=== PATIENT | male | born 1960 ===

== ENCOUNTER 2021-05-10 15:45 | Inpatient (IN) | payer MEDICARE ==
[~2021-05-10] VITALS: Ht 182.9 cm; Wt 74.1 kg
[2021-05-10 16:26] LABS: BASOPHILS ABSOLUTE AUTO 0.04 K/mm3 (0.00-0.23); BASOPHILS PERCENT AUTO 0 % (0-2); EOSINOPHILS PERCENT AUTO 0 % (0-6); Hematocrit 47.2 % (37.0-53.0); Hemoglobin 16.3 g/dL (13.5-17.5); IMMATURE GRAN ABSOLUTE AUTO 0.03 K/mm3 (0.00-0.10); IMMATURE GRAN PERCENT AUTO 0 % (0-1); LYMPHOCYTES PERCENT AUTO 9 % (21-46); MONOCYTES PERCENT AUTO 7 % (4-13); Mean Corpuscular HGB 33.7 pg (26.0-34.0); Mean Corpuscular HGB Conc 34.5 g/dL (31.5-36.5); Mean Corpuscular Volume 98 fL (80-100); Mean Platelet Volume 11.4 fL (9.1-12.4); NEUTROPHILS ABSOLUTE AUTO 9.05 K/mm3 (1.96-9.15); NEUTROPHILS PERCENT AUTO 83 % (41-73); Platelet Count 109 K/mm3 (150-400); RDW Coefficient Variation 13.1 % (11.7-14.2); RDW Standard Deviation 47.5 fL (35.1-46.3); Red Blood Cell Count 4.84 M/mm3 (4.30-5.90); White Blood Cell Count 10.92 K/mm3 (4.00-11.30)
[2021-05-10 16:43] LABS: Alanine Aminotransfer (ALT/SGP 77 U/L (12-78); Albumin, Blood 2.9 g/dL (3.4-5.0); Albumin/Globulin Ratio 0.5 (0.8-1.8); Alk Phos 166 U/L (50-136); Anion Gap 13 mmol/L (6-16); Aspartate Aminotrans (AST/SGOT 411 U/L (12-37); Beta HCG, Quantitative, Serum <1 mIU/mL (0-1); Bilirubin, Total 4.2 mg/dL (0.1-1.0); Blood Urea Nitrogen 13 mg/dL (8-24); Bun/Creatinine Ratio 19.4 (12.0-20.0); CO2, Blood 21 mmol/L (21-32); Calcium, Blood 9.2 mg/dL (8.5-10.1); Chloride, Blood 104 mmol/L (98-108); Creatinine, Blood 0.67 mg/dL (0.60-1.20); Ethanol (Alcohol), Blood, Med <3 mg/dL; Globulin, Blood 5.6 g/dL (2.2-4.0); Glomerular Filtration Rate >60 (60-); Glucose, Blood 82 mg/dL (70-99); Potassium, Blood 4.5 mmol/L (3.5-5.5); Sodium, Blood 138 mmol/L (136-145); Total Protein, Blood 8.5 g/dL (6.4-8.2)
[2021-05-10 18:08] LABS: Creatine Kinase MB 74.7 ng/mL (0.0-3.6); Creatine Kinase MB Index 0.8 (0.0-4.0)
[2021-05-10 19:06] LABS: Albumin, Blood 2.9 g/dL (3.4-5.0); Albumin/Globulin Ratio 0.5 (0.8-1.8); Bilirubin, Direct 1.4 mg/dL (0.0-0.3); Bilirubin, Indirect 2.8 mg/dL (0.1-0.7); Bilirubin, Total 4.2 mg/dL (0.1-1.0); Globulin, Blood 5.5 g/dL (2.2-4.0); Total Protein, Blood 8.4 g/dL (6.4-8.2)
[2021-05-10 21:04] LABS: International Normalized Ratio 1.28; Prothrombin Time Results 13.2 Sec (9.7-11.5)
[2021-05-10 21:49] LABS: Source, Urine Clean Catch
[2021-05-10 21:51] LABS: Bilirubin, Urine Neg (Neg); Blood, Urine 5+ (Neg); Glucose Qualitative, Urine Neg (Neg); Ketones, Urine 3+ (Neg); Leukocyte Esterase, Urine 3+ (Neg); Nitrite, Urine Pos (Neg); Protein, Urine 3+ (Neg); Specific Gravity, Urine 1.015 (1.003-1.022); Urobilinogen, Urine 1+ (Normal)
[2021-05-10 21:57] LABS: Appearance, Urine Hazy (Clear); Color, Urine Amber (P-Yellow)
[2021-05-10 21:58] LABS: Red Blood Cells, Urine 0-2 /hpf (0-2); Squamous Epithelial Cells Not Seen /hpf (Few); White Blood Cells, Urine TNTC /hpf (0-5)
[2021-05-10 21:59] LABS: Bacteria Many /hpf
--- NOTE | 2021-05-10 23:34 | NUR ---
ADMISSION NOTE: RECEIVED PT FROM ER VIA STRETCHER LETHARGIC. PT DENIES ANY DISCOMFORT. ORIENTED TO SELF. MILD TREMORS. NO SEIZURE ACTIVITY. BRUISES TO CHEST, RIGHT EYEBROW, AND BILATERAL KNEES. PT WAS MADE COMFORTABLE IN BED. SAFETY MEASURES IMPLEMENTED. BED ALARM EXIT ON. IVF INFUSING. STACH 102 ON TELE. ON CONT PULSE OX SAT @ 96% ON RA. WILL CONTINUE TO MONITOR.
--- NOTE | 2021-05-11 01:15 | NUR ---
PT IS AGITATED, RESLESS, KICKING SIDE RAILS. ATIVAN 2MG GIVEN PRN. B/P 157/84, HR 104, RESP 19, SAT 96% ON RA.
[2021-05-11 05:00] LABS: BASOPHILS ABSOLUTE AUTO 0.02 K/mm3 (0.00-0.23); BASOPHILS PERCENT AUTO 0 % (0-2); EOSINOPHILS PERCENT AUTO 0 % (0-6); Hematocrit 42.4 % (37.0-53.0); Hemoglobin 14.6 g/dL (13.5-17.5); IMMATURE GRAN ABSOLUTE AUTO 0.02 K/mm3 (0.00-0.10); IMMATURE GRAN PERCENT AUTO 0 % (0-1); LYMPHOCYTES ABSOLUTE AUTO 1.58 K/mm3 (0.84-5.20); LYMPHOCYTES PERCENT AUTO 18 % (21-46); MONOCYTES ABSOLUTE AUTO 0.79 K/mm3 (0.16-1.47); MONOCYTES PERCENT AUTO 9 % (4-13); Mean Corpuscular HGB 33.5 pg (26.0-34.0); Mean Corpuscular HGB Conc 34.4 g/dL (31.5-36.5); Mean Corpuscular Volume 97 fL (80-100); Mean Platelet Volume 11.2 fL (9.1-12.4); NEUTROPHILS ABSOLUTE AUTO 6.38 K/mm3 (1.96-9.15); NEUTROPHILS PERCENT AUTO 73 % (41-73); Platelet Count 85 K/mm3 (150-400); RDW Standard Deviation 46.6 fL (35.1-46.3); Red Blood Cell Count 4.36 M/mm3 (4.30-5.90); White Blood Cell Count 8.79 K/mm3 (4.00-11.30)
[2021-05-11 06:11] LABS: Alanine Aminotransfer (ALT/SGP 85 U/L (12-78); Albumin, Blood 2.4 g/dL (3.4-5.0); Albumin/Globulin Ratio 0.5 (0.8-1.8); Alk Phos 126 U/L (50-136); Anion Gap 10 mmol/L (6-16); Aspartate Aminotrans (AST/SGOT 514 U/L (12-37); Blood Urea Nitrogen 13 mg/dL (8-24); Bun/Creatinine Ratio 19.6 (12.0-20.0); CO2, Blood 26 mmol/L (21-32); Calcium, Blood 8.8 mg/dL (8.5-10.1); Chloride, Blood 109 mmol/L (98-108); Creatinine, Blood 0.66 mg/dL (0.60-1.20); Globulin, Blood 4.5 g/dL (2.2-4.0); Glomerular Filtration Rate >60 (60-); Glucose, Blood 117 mg/dL (70-99); Magnesium, Blood 2.3 mg/dL (1.6-2.4); Potassium, Blood 3.7 mmol/L (3.5-5.5); Sodium, Blood 145 mmol/L (136-145); Total Protein, Blood 6.9 g/dL (6.4-8.2)
[2021-05-11 06:22] LABS: CPK Creatine Kinase 11070 U/L (39-308)
--- NOTE | 2021-05-11 06:23 | NUR ---
PT HAS BEEN IN BED RESTLESS AT TIMES. CIWA SCORE 1-5. NO SEIZURE ACTIVITY. PT REMAINS CONFUSED AND DISORGANIZED. MEDICATED X 1 WITH ATIVAN PRN FOR AGITATION. ENEMA GIVEN. LARGE BM X1. IVF PATENTLY INFUSING. MEPILEX APPLIED TO CHEST AND VERO KNEES. SINUS TACH ON MONITOR; HR 107. SAT 96% ON RA. VSS.
[2021-05-11 14:05] LABS: Stool Occult Blood Guaiac 1 Pos (Neg)
[2021-05-11 15:23] LABS: U Amphetamine Screen Not Detected; U Barbituate Screen Not Detected; U Benzodiazapine Screen DETECTED; U Buprenorphine Screen Not Detected; U Cannabinoids Screen DETECTED; U Cocaine Screen Not Detected; U Methadone Screen Not Detected; U Methamphetamine Screen Not Detected; U Opiates Screen Not Detected; U Oxycodone Screen Not Detected; U Phencyclidine Screen Not Detected; U Propoxyphene Screen Not Detected
--- NOTE | 2021-05-11 17:22 | NUR ---
PT ALERT AND ORIENTED TO SLEF,PT IS HALLUCINATING AT TIMES,PT ON SEIZURES PRECAUTIONS ETOH,PT HAVE BAD TREMORS,PT HAVE MCCONNELL,DISCOLORATIONS WITH SCABS ON UPPER CHEST AREA AND BILATERAL KNEES,PT RIGHT EYE IS SWOLLEN WITH BRUISES AROUND THE FACE ARE,PT GLANS IS ALSO SWOLLEN WITH DISCOLORATIONS AROUND THE GROIN AREA,PT ON TELE RUNNING SINUS TACHY AT RATE 112,PT IN BED,BED IN LOW POSTION,CALL LIGHT IN REACH WILL CONTINUE TO MONITOR.
--- NOTE | 2021-05-12 01:25 | NUR ---
PT HAS BEEN AGITATED WITH CIWA SCORE OVER 15. ATIVAN PRN GIVEN PER CIWA. VS MONITORED. NO SEIZURE ACTIVITY. STACH ON TELE 113. SAT 94 ON RA. PT REMAINS CONFUSED WITH VISUAL HALLUCINATIONS. IVF INFUSING. ADLS GIVEN. TURNED AND REPOSITIONED FOR COMFORT. SAFETY PRECAUTIONS MAINTAINED. WILL CONTINUE WITH PLAN OF CARE.
[2021-05-12 05:25] LABS: BASOPHILS ABSOLUTE AUTO 0.02 K/mm3 (0.00-0.23); BASOPHILS PERCENT AUTO 0 % (0-2); EOSINOPHILS ABSOLUTE AUTO 0.17 K/mm3 (0.00-0.68); EOSINOPHILS PERCENT AUTO 2 % (0-6); Hematocrit 43.1 % (37.0-53.0); Hemoglobin 14.6 g/dL (13.5-17.5); IMMATURE GRAN ABSOLUTE AUTO 0.07 K/mm3 (0.00-0.10); IMMATURE GRAN PERCENT AUTO 1 % (0-1); LYMPHOCYTES ABSOLUTE AUTO 1.73 K/mm3 (0.84-5.20); LYMPHOCYTES PERCENT AUTO 25 % (21-46); MONOCYTES ABSOLUTE AUTO 0.63 K/mm3 (0.16-1.47); MONOCYTES PERCENT AUTO 9 % (4-13); Mean Corpuscular HGB 33.5 pg (26.0-34.0); Mean Corpuscular HGB Conc 33.9 g/dL (31.5-36.5); Mean Corpuscular Volume 99 fL (80-100); Mean Platelet Volume 11.2 fL (9.1-12.4); NEUTROPHILS ABSOLUTE AUTO 4.39 K/mm3 (1.96-9.15); NEUTROPHILS PERCENT AUTO 63 % (41-73); Platelet Count 72 K/mm3 (150-400); RDW Coefficient Variation 13.1 % (11.7-14.2); RDW Standard Deviation 47.8 fL (35.1-46.3); Red Blood Cell Count 4.36 M/mm3 (4.30-5.90); White Blood Cell Count 7.01 K/mm3 (4.00-11.30)
--- NOTE | 2021-05-12 05:59 | NUR ---
PT REMAINS CONFUSED. HAS BEEN AGITATED THROUGHOUT THE NIGHT. ATIVAN GIVEN PER CIWA PROTOCOL. RESTING IN BED WITHOUT DISTRESS. LAST CIWA SCORE 7. IVF INFUSING. ABX GIVEN. NO SEIZURE ACTIVITY. TURNED AND REPOSITIONED FOR COMFORT. ADLS GIVEN.
[2021-05-12 06:02] LABS: Alanine Aminotransfer (ALT/SGP 111 U/L (12-78); Albumin, Blood 2.4 g/dL (3.4-5.0); Albumin/Globulin Ratio 0.5 (0.8-1.8); Alk Phos 124 U/L (50-136); Anion Gap 7 mmol/L (6-16); Aspartate Aminotrans (AST/SGOT 688 U/L (12-37); Blood Urea Nitrogen 10 mg/dL (8-24); Bun/Creatinine Ratio 16.8 (12.0-20.0); CO2, Blood 29 mmol/L (21-32); Calcium, Blood 8.7 mg/dL (8.5-10.1); Chloride, Blood 108 mmol/L (98-108); Globulin, Blood 4.8 g/dL (2.2-4.0); Glomerular Filtration Rate >60 (60-); Glucose, Blood 110 mg/dL (70-99); Potassium, Blood 2.8 mmol/L (3.5-5.5); Sodium, Blood 144 mmol/L (136-145); Total Protein, Blood 7.2 g/dL (6.4-8.2)
[2021-05-12 11:05] LABS: PCO2 Arterial 38.9 mmHg (35-45); PO2 Arterial 70.7 mmHg (80-100); pH Blood Arterial 7.51 (7.35-7.45)
--- NOTE | 2021-05-12 19:15 | NUR ---
SHIFT SUMMARY PATIENT IS ALERT TO SELF AND PLACE OCCASIONALLY. PATIENT RECENTLY HAD A CIWA SCORE OF 7. PATIENT'S ATIVAN WAS REDUCED AND ABLE TO HOLD A CONVERSATION. PATIENT IS ON 2.5 LITERS O2 VIA NASAL CANNULA. INCONTINENT, ON A FULL LIQUID DIET. PATIENT WILL NOT CALL.
[2021-05-13 06:01] LABS: BASOPHILS ABSOLUTE AUTO 0.02 K/mm3 (0.00-0.23); BASOPHILS PERCENT AUTO 0 % (0-2); EOSINOPHILS ABSOLUTE AUTO 0.01 K/mm3 (0.00-0.68); EOSINOPHILS PERCENT AUTO 0 % (0-6); Hematocrit 44.2 % (37.0-53.0); Hemoglobin 14.6 g/dL (13.5-17.5); IMMATURE GRAN ABSOLUTE AUTO 0.02 K/mm3 (0.00-0.10); IMMATURE GRAN PERCENT AUTO 0 % (0-1); LYMPHOCYTES ABSOLUTE AUTO 1.65 K/mm3 (0.84-5.20); LYMPHOCYTES PERCENT AUTO 22 % (21-46); MONOCYTES ABSOLUTE AUTO 0.91 K/mm3 (0.16-1.47); MONOCYTES PERCENT AUTO 12 % (4-13); Mean Corpuscular HGB 33.3 pg (26.0-34.0); Mean Corpuscular Volume 101 fL (80-100); Mean Platelet Volume 11.2 fL (9.1-12.4); NEUTROPHILS ABSOLUTE AUTO 4.82 K/mm3 (1.96-9.15); NEUTROPHILS PERCENT AUTO 65 % (41-73); Platelet Count 69 K/mm3 (150-400); RDW Coefficient Variation 12.7 % (11.7-14.2); RDW Standard Deviation 47.7 fL (35.1-46.3); Red Blood Cell Count 4.39 M/mm3 (4.30-5.90); White Blood Cell Count 7.43 K/mm3 (4.00-11.30)
--- NOTE | 2021-05-13 06:34 | NUR ---
SHIFT SUMMARY PATIENT ALERT AND ORIENTED TO SELF. HAD NO COMPLAINTS OF PAIN OR SHORTNESS OF BREATH. BED IN LOWEST POSITION WITH WHEELS LOCKED AND ALARM ON. CALL LIGHT WITHIN REACH. REPORT GIVEN TO ONCOMING RN.
[2021-05-13 06:36] LABS: Alanine Aminotransfer (ALT/SGP 114 U/L (12-78); Albumin, Blood 2.3 g/dL (3.4-5.0); Albumin/Globulin Ratio 0.5 (0.8-1.8); Alk Phos 142 U/L (50-136); Anion Gap 7 mmol/L (6-16); Aspartate Aminotrans (AST/SGOT 622 U/L (12-37); Bilirubin, Total 3.6 mg/dL (0.1-1.0); Blood Urea Nitrogen 8 mg/dL (8-24); Bun/Creatinine Ratio 14.8 (12.0-20.0); CO2, Blood 28 mmol/L (21-32); Calcium, Blood 8.6 mg/dL (8.5-10.1); Chloride, Blood 109 mmol/L (98-108); Creatinine, Blood 0.54 mg/dL (0.60-1.20); Glomerular Filtration Rate >60 (60-); Glucose, Blood 94 mg/dL (70-99); Potassium, Blood 3.7 mmol/L (3.5-5.5); Sodium, Blood 144 mmol/L (136-145); Total Protein, Blood 7.3 g/dL (6.4-8.2)
[2021-05-13 06:57] LABS: CPK Creatine Kinase 6538 U/L (39-308)
--- NOTE | 2021-05-13 17:02 | NUR ---
SHIFT SUMMARY PATIENT IS ALERT AND ORIENTED TO SELF, AND FAMILY. PATIENT'S RECENT CIWA SCORE WAS A 4. PATIENT DENIES ANY PAIN OR DISCOMFORT AT THIS TIME. PATIENT HAS BEEN ABLE TO EAT SOME OF THEIR MEALS TODAY. PATIENT HAS BEEN COOPERATIVE FOR THE MOST PART, AND LESS RESTRICTIVE WITH BEDSIDE CARE. WILL CONTINUE TO MONITOR THE PATIENT UNTIL REPORT IT GIVEN TO ONCOMING NURSE.
--- NOTE | 2021-05-14 04:33 | NUR ---
SHIFT SUMMARY PT CONFUSED. YELLS OUT AT TIMES. SPEECH IS GARBLED AND DIFFICULT TO UNDERSTAND. PT IS RESISTANT TO CARE, PLEASANT OTHERWISE BUT DOES NOT LIKE TO BE TURNED OR HAVE ATTENDS CHANGED. PUSHES BACK WITH CHANGES. WHEN LEFT TO REST PT DOES NOT APPEAR TO BE OVERLY ANXIOUS. CIWA SCORES 6-7. NO PRN MEDICATION GIVEN THIS EVENING. PT HAS LARGE SCABS ON FACE AND CHEST AND KNEES. MEPILEX TO SORES ON CHEST/ABD. PT DRANK PO LACTULOSE IN APPLE JUICE. ONE BM THIS EVENING. HEAVILY INCONTINENT OF URINE. URINE DARK AND ORANGE IN COLOR. TELEMETRY READING SINUS TACH AT 105. VITAL SIGNS STABLE. NO ACUTE CHANGES THIS EVENING.
[2021-05-14 06:41] LABS: Alanine Aminotransfer (ALT/SGP 107 U/L (12-78); Albumin, Blood 2.2 g/dL (3.4-5.0); Albumin/Globulin Ratio 0.5 (0.8-1.8); Alk Phos 155 U/L (50-136); Anion Gap 4 mmol/L (6-16); Aspartate Aminotrans (AST/SGOT 438 U/L (12-37); Bilirubin, Total 3.1 mg/dL (0.1-1.0); Blood Urea Nitrogen 6 mg/dL (8-24); Bun/Creatinine Ratio 12.2 (12.0-20.0); CO2, Blood 31 mmol/L (21-32); Calcium, Blood 8.7 mg/dL (8.5-10.1); Chloride, Blood 110 mmol/L (98-108); Creatinine, Blood 0.49 mg/dL (0.60-1.20); Ferritin, Serum 484 ng/mL (26-388); Globulin, Blood 4.8 g/dL (2.2-4.0); Glomerular Filtration Rate >60 (60-); Glucose, Blood 101 mg/dL (70-99); Iron Serum 63 ug/dL (65-175); Percent Saturation 36.6 % (20.0-50.0); Potassium, Blood 2.9 mmol/L (3.5-5.5); Sodium, Blood 145 mmol/L (136-145); Total Iron Binding Capacity 172 ug/dL (250-450)
--- NOTE | 2021-05-14 16:29 | NUR ---
SHIFT SUMMARY PATIENT DENIES PAIN, NAUSEA, AND SHORTNESS OF BREATH. PATIENT WAS AGITATED THIS MORNING, TRYING TO CRAWL PUT OF BED. MEDICATED PER EMAR. PATIENT RELAXED AFTER. NEW ORDERS FOR A NICOTINE PATCH. 1700 LACTULOSE HELD DUE TO PATIENT HAVING 5+ LOOSE STOOLS THIS SHIFT. PATIENT IS A 2 PERSON ROLL IN BED. PATIENT IS MOSTLY INCONTINENT. DRESSING CHANGED. PATIENT IS DRINKING WELL. PATIENT HAS POOR PO INTAKE FOR EATING. CIWA UNDER 8 FOR ENTIRE SHIFT. PATIENT FREQUENTLY YELLED OUT THIS SHIFT.
[2021-05-15 05:43] LABS: Magnesium, Blood 1.7 mg/dL (1.6-2.4)
[2021-05-15 05:48] LABS: Anion Gap 6 mmol/L (6-16); Blood Urea Nitrogen 5 mg/dL (8-24); Bun/Creatinine Ratio 10.8 (12.0-20.0); CO2, Blood 29 mmol/L (21-32); Calcium, Blood 8.2 mg/dL (8.5-10.1); Chloride, Blood 100 mmol/L (98-108); Creatinine, Blood 0.47 mg/dL (0.60-1.20); Glomerular Filtration Rate >60 (60-); Glucose, Blood 95 mg/dL (70-99); Phosphorus, Blood 2.8 mg/dL (2.5-4.9); Potassium, Blood 3.4 mmol/L (3.5-5.5)
[2021-05-15 05:50] LABS: Sodium, Blood 135 mmol/L (136-145)
--- NOTE | 2021-05-15 07:44 | NUR ---
SHIFT SUMMARY PT IS A 61 Y/O MALE, ADMITTED FOR ETOH WITHDRAWAL. HE IS A&0 X SELF, YELLS OUT FREQUENTLY WHEN HE NEEDS HELP. INCONTINENT. NO C/O ACUTE PAIN, NAUSEA OR SOB. VITAL SIGNS STABLE. PT SLID FROM THE BED TO THE FLOOR THIS AM @ APPROXIMATELY 0645. NO NEW WOUNDS NOTED, THOUGH WOUND ON PT'S R KNEE BLED SLIGHTLY. PT ALSO REPORTED HE BUMPED HIS HEAD ON THE BEDSIDE TABLE WHEN ALREADY ON THE FLOOR. VITAL SIGNS STABLE POST FALL. NO CHANGES NOTED POST-FALL. REPORT GIVEN TO ONCOMING RN.
--- NOTE | 2021-05-15 17:06 | NUR ---
SHIFT SUMMARY PATIENT IS ALERT AND ORIENTED TO SELF. PATIENT CONTINUES TO BELIEVE THEY ARE IN [place] AT THIS TIME. PATIENT HAS BEEN TRYING TO GET OUT OF BED MULTIPLE TIMES THIS SHIFT. A NON-VIOLENT RESTRAINT WAS ORDERED THIS SHIFT. THE PATIENT HAS SINCE STAYED IN BED. NO ACUTE CHANGES, STILL MEDICATING WITH ATIVAN PER THE EMAR.
--- NOTE | 2021-05-15 22:16 | NUR ---
PT CONTINUES ON WITHDRAWL CHECKS FOR ETOH. SCORE OF LAST CHECK: 10. CLIMBING OVER RAILS, HIGH FALL RISK, AGITATED. ATIVAN 1 MG PO ADMINISTERED, JORDAN BRITO APPLIED PER MD ORDERS FOR PT SAFETY. CALL LIGHT IN REACH.
[2021-05-16 04:58] LABS: Alanine Aminotransfer (ALT/SGP 115 U/L (12-78); Albumin, Blood 2.1 g/dL (3.4-5.0); Albumin/Globulin Ratio 0.4 (0.8-1.8); Alk Phos 163 U/L (50-136); Anion Gap 5 mmol/L (6-16); Aspartate Aminotrans (AST/SGOT 307 U/L (12-37); Bilirubin, Total 4.3 mg/dL (0.1-1.0); Blood Urea Nitrogen 6 mg/dL (8-24); Bun/Creatinine Ratio 11.5 (12.0-20.0); CO2, Blood 30 mmol/L (21-32); Calcium, Blood 8.4 mg/dL (8.5-10.1); Chloride, Blood 101 mmol/L (98-108); Creatinine, Blood 0.52 mg/dL (0.60-1.20); Globulin, Blood 4.7 g/dL (2.2-4.0); Glomerular Filtration Rate >60 (60-); Glucose, Blood 74 mg/dL (70-99); Potassium, Blood 3.7 mmol/L (3.5-5.5); Sodium, Blood 136 mmol/L (136-145); Total Protein, Blood 6.8 g/dL (6.4-8.2)
--- NOTE | 2021-05-16 05:31 | NUR ---
CURATOR OF PHOTOGRAPHY AND PRINTS SUMMARY PT CONTINUES TO SHOW ANXIETY AND AGITATION AND MADE MULTIPLE ATTEMPTS TO GET OUT OF BED. VERY UNSTEADY AND NOT REDIRECTABLE. PLACED IN JORDAN VEST FOR SAFETY PER MD ORDERS. INCONT OF URINE SEVERAL TIMES. CALL LIGHT IN REACH. RECEIVED ATIVAN PO X 1 THIS SHIFT. WILL CONTINUE TO ENCOURAGE SAFE BEHAVIOR.
--- NOTE | 2021-05-16 15:56 | NUR ---
TRANSFER PATIENT TRANSFERRED TO ROOM 351. BELONGINGS SENT WITH PATIENT. REPORT GIVEN TO COURTNEY UNDERWOOD.
--- NOTE | 2021-05-16 18:03 | NUR ---
PATIENT IS ALERT AND DISORIENTED. HE IS INCONTINENT OF URINE, ATTENDS IN PLACE. ON RA. PATIENT IS SITTING UP IN BED EATING DINNER WITH ASSISTANCE AT THIS TIME. PATIENT BECOMES AGITATED WITH CARE AT TIMES. JORDAN VEST RESTRAINT IS IN PLACE. NO C/O PAIN. WILL CONTINUE TO MONITOR
[2021-05-17 05:27] LABS: BASOPHILS ABSOLUTE AUTO 0.07 K/mm3 (0.00-0.23); BASOPHILS PERCENT AUTO 1 % (0-2); EOSINOPHILS PERCENT AUTO 1 % (0-6); Hematocrit 39.9 % (37.0-53.0); Hemoglobin 13.4 g/dL (13.5-17.5); IMMATURE GRAN ABSOLUTE AUTO 0.04 K/mm3 (0.00-0.10); IMMATURE GRAN PERCENT AUTO 1 % (0-1); LYMPHOCYTES ABSOLUTE AUTO 1.99 K/mm3 (0.84-5.20); LYMPHOCYTES PERCENT AUTO 24 % (21-46); MONOCYTES ABSOLUTE AUTO 1.58 K/mm3 (0.16-1.47); MONOCYTES PERCENT AUTO 19 % (4-13); Mean Corpuscular HGB 33.5 pg (26.0-34.0); Mean Corpuscular HGB Conc 33.6 g/dL (31.5-36.5); Mean Corpuscular Volume 100 fL (80-100); Mean Platelet Volume 11.2 fL (9.1-12.4); NEUTROPHILS ABSOLUTE AUTO 4.47 K/mm3 (1.96-9.15); NEUTROPHILS PERCENT AUTO 54 % (41-73); Platelet Count 111 K/mm3 (150-400); RDW Coefficient Variation 13.2 % (11.7-14.2); RDW Standard Deviation 48.1 fL (35.1-46.3); White Blood Cell Count 8.25 K/mm3 (4.00-11.30)
[2021-05-17 05:55] LABS: Alanine Aminotransfer (ALT/SGP 102 U/L (12-78); Albumin, Blood 1.9 g/dL (3.4-5.0); Albumin/Globulin Ratio 0.4 (0.8-1.8); Alk Phos 166 U/L (50-136); Anion Gap 5 mmol/L (6-16); Aspartate Aminotrans (AST/SGOT 194 U/L (12-37); Bilirubin, Direct 2.2 mg/dL (0.0-0.3); Bilirubin, Indirect 1.3 mg/dL (0.1-0.7); Bilirubin, Total 3.5 mg/dL (0.1-1.0); Blood Urea Nitrogen 5 mg/dL (8-24); CO2, Blood 28 mmol/L (21-32); CPK Creatine Kinase 814 U/L (39-308); Calcium, Blood 8.3 mg/dL (8.5-10.1); Chloride, Blood 107 mmol/L (98-108); Creatinine, Blood 0.56 mg/dL (0.60-1.20); Globulin, Blood 4.5 g/dL (2.2-4.0); Glomerular Filtration Rate >60 (60-); Glucose, Blood 87 mg/dL (70-99); Phosphorus, Blood 3.8 mg/dL (2.5-4.9); Potassium, Blood 3.6 mmol/L (3.5-5.5); Sodium, Blood 140 mmol/L (136-145); Total Protein, Blood 6.4 g/dL (6.4-8.2)
[2021-05-17 09:10] LABS: HBSAG SCREEN Negative (Negative); HEP A AB, IGM Negative (Negative); HEP B CORE AB, IGM Negative (Negative); HEP C VIRUS AB 0.1 (0.0-0.9)
--- NOTE | 2021-05-17 16:57 | NUR ---
PT IS ALERT AND ORIENTED TO PERSON, PLACE, AND SITUATION. HE IS CALM AND COOPERATIVE. HE HAS NOT SHOWN AGGRESSIVE BEHAVIOR. JORDAN VEST WAS DISCONTINUED AT 1230. BED ALARM WAS TURN ON AND CALL LIGHT WITHIN REACH. HE IS AWARE OF LIMITATIONS AND AGREES NOT TO GET OOB WITHOUT ASSISTANCE.
--- NOTE | 2021-05-17 18:40 | NUR ---
PATIENT IS ALERT AND ORIENTED X 2. HE IS CALM, COOPERATIVE, AND HAS BEEN VERY PLEASANT TODAY. HE WAS NOT ABLE TO STAND ON ASSESSMENT DUE TO WEAKNESS AND MUSLCE JERKING. HE IS NOT ABLE TO SIT UNSUPPORTED. WHILE SITTING ON THE SIDE OF THE BED WITH PHYSICAL THERAPY, THE PATIENT WOULD FALL BACKWARD AFTER ABOUT ONE MINUTE OF LESS. HE WAS NOT ABLE TO BE TRANSFERRED SAFELY TO BEDSIDE COMMODE. PT IS AWARE OF HIS LIMITATIONS. JORDAN VEST WAS REMOVED AT 1230 AND PATIENT AGREED TO CALL FOR ASSISTANCE. HE HAS BEEN COMPLIANT WITH CALLING FOR HELP AND HAS NOT TRIED TO GET OOB. HE HAS NOT SHOW AGGRESSIVE BEHAVIOR TODAY. HE DOES NOT APPEAR TO BE IN ACUTE DISTRESS. HE IS NOTED PULLING SCAB FROM FACIAL WOUNDS AND ADVISED NOT TO PULL OFF SCABS. DRSG CHANGED TO SABRINA.
--- NOTE | 2021-05-18 05:03 | NUR ---
PATIENT IS ASLEEP LYING IN BED. PT HAS BEEM COOPERATIVE THROUGHOUT SHIFT. PT IS ALERT TO SELF AND PLACE. NO EVIDENCE OF PAIN. VS WNL, NO ACUTE CHANGES. BED ALARM ON, BED IN LOW POSITION AND CALL LIGHT WITHIN REACH.
[2021-05-18 09:14] LABS: Alanine Aminotransfer (ALT/SGP 94 U/L (12-78); Albumin, Blood 1.8 g/dL (3.4-5.0); Albumin/Globulin Ratio 0.4 (0.8-1.8); Alk Phos 172 U/L (50-136); Anion Gap 6 mmol/L (6-16); Aspartate Aminotrans (AST/SGOT 143 U/L (12-37); Bilirubin, Total 3.3 mg/dL (0.1-1.0); Blood Urea Nitrogen 4 mg/dL (8-24); Bun/Creatinine Ratio 8.1 (12.0-20.0); CO2, Blood 25 mmol/L (21-32); CPK Creatine Kinase 439 U/L (39-308); Calcium, Blood 8.1 mg/dL (8.5-10.1); Chloride, Blood 104 mmol/L (98-108); Creatinine, Blood 0.49 mg/dL (0.60-1.20); Globulin, Blood 4.7 g/dL (2.2-4.0); Glomerular Filtration Rate >60 (60-); Glucose, Blood 92 mg/dL (70-99); Potassium, Blood 3.8 mmol/L (3.5-5.5); Sodium, Blood 135 mmol/L (136-145); Total Protein, Blood 6.5 g/dL (6.4-8.2)
--- NOTE | 2021-05-18 18:32 | NUR ---
PATIENT IS ALERT TO PERSON, PLACE, AND SITUATION. HE DENIES PAIN. HE HAS FREQUENT LOOSE STOOL DUE TO LACTOLOSE AND FREQUENTLY VOIDS. HE DOES NOT CALL WHEN HE HAS TO USE HE URINAL AND MOSTLY SPILLS URINE IN THE BED. HE STATES AT TIMES HE DOES NOT KNOW WHEN HE HAS HAD A BM. HE REQUIRES FREQUENT CHANGING DEPENDS. HE IS CONFUSED AT TIME AND NEEDS REDIRECTION. BUTTOCKS ARE RED AND BARRIER PAST APPLIED AFTER EACH TOILETING. DRSG CHANGED TO CHEST WOUNDS. HE DOES NOT APPEAR TO BE IN ACUTE DISTRESS. WILL CONTINUE TO MONITOR.
[2021-05-19 04:46] LABS: Hematocrit 36.5 % (37.0-53.0); Hemoglobin 12.5 g/dL (13.5-17.5); Mean Corpuscular HGB 33.8 pg (26.0-34.0); Mean Corpuscular HGB Conc 34.2 g/dL (31.5-36.5); Mean Corpuscular Volume 99 fL (80-100); Mean Platelet Volume 11.1 fL (9.1-12.4); Platelet Count 166 K/mm3 (150-400); RDW Coefficient Variation 13.2 % (11.7-14.2); RDW Standard Deviation 48.2 fL (35.1-46.3); White Blood Cell Count 9.33 K/mm3 (4.00-11.30)
[2021-05-19 05:11] LABS: Alanine Aminotransfer (ALT/SGP 86 U/L (12-78); Albumin, Blood 1.8 g/dL (3.4-5.0); Albumin/Globulin Ratio 0.4 (0.8-1.8); Alk Phos 158 U/L (50-136); Anion Gap 8 mmol/L (6-16); Aspartate Aminotrans (AST/SGOT 116 U/L (12-37); Bilirubin, Total 2.6 mg/dL (0.1-1.0); Blood Urea Nitrogen 6 mg/dL (8-24); CO2, Blood 25 mmol/L (21-32); Calcium, Blood 8.3 mg/dL (8.5-10.1); Chloride, Blood 105 mmol/L (98-108); Creatinine, Blood 0.43 mg/dL (0.60-1.20); Globulin, Blood 4.6 g/dL (2.2-4.0); Glomerular Filtration Rate >60 (60-); Glucose, Blood 85 mg/dL (70-99); Potassium, Blood 3.3 mmol/L (3.5-5.5); Sodium, Blood 138 mmol/L (136-145); Total Protein, Blood 6.4 g/dL (6.4-8.2)
--- NOTE | 2021-05-19 05:13 | NUR ---
PATIENT IS ASLEEP LYING IN BED. RR EVEN AND UNLABORED. PT IS IN VEST RESTRAINT BUT IS CALM AT THE MOMENT. NO S/S OF DISTRESS. VS WNL. BED IN LOW POSITION AND CALL LIGHT WITHIN REACH.
--- NOTE | 2021-05-19 11:19 | NUR ---
PT IS ALERT AND ORIENTED X 2. HE IS CALM AND COOPERATIVE. HE FOLLOWS DIRECTIONS. HE HAS NOT ATTEMPTED TO GET OOB SINCE CHANGE OF SHIFT. DISCUSSED WITH PT TO CALL STAFF FOR ASSISTANCE OR NEEDS. INFORMED HIM THAT JORDAN WILL BE DISCONTINUED AND ENCOIRAGED NOT TO GET OOB WITH ASSISTANCE. PT AGREED. WILL MONITOR PT FREQUENTLY.
--- NOTE | 2021-05-19 18:55 | NUR ---
PT IS ALERT AND ORIENTED X 2. HE IS CALM AND COOPERATIVE. HE HAS NOT ATTEMPTED TO GET OOB WITHOUT ASSISTANCE AND HAS CALLED FOR HELP. INCONTINENT OF BOWELS. HE USES THE URINAL BUT WASTE THE URINE MOST TIMES. HE HAD LESS BM TODAY. DRSG CHANGED TO CHEST TODAY AND MD THERE TO OBSERVED WOUNDS. HE IS NOT ABLE TO STAND WITH 2 PERSON ASSIST AND IS ON BEDREST. JORDAN VEST REMOVED AT 1020. HE HAD AN UNEVENT DAY.
[2021-05-20 05:07] LABS: Hematocrit 37.8 % (37.0-53.0); Hemoglobin 12.8 g/dL (13.5-17.5); Mean Corpuscular HGB 33.7 pg (26.0-34.0); Mean Corpuscular HGB Conc 33.9 g/dL (31.5-36.5); Mean Corpuscular Volume 100 fL (80-100); Mean Platelet Volume 11.8 fL (9.1-12.4); Platelet Count 180 K/mm3 (150-400); RDW Coefficient Variation 13.6 % (11.7-14.2); RDW Standard Deviation 50.1 fL (35.1-46.3); White Blood Cell Count 10.05 K/mm3 (4.00-11.30)
--- NOTE | 2021-05-20 05:21 | NUR ---
PATIENT IS ASLEEP LYING IN BED. RR EVEN AND UNLABORED. VS WNL, NO ACUTE CHANGES OVERNIGHT. BED IN LOW POSITION AND CALL LIGHT WITHIN REACH.
[2021-05-20 05:45] LABS: Alanine Aminotransfer (ALT/SGP 82 U/L (12-78); Albumin, Blood 1.7 g/dL (3.4-5.0); Albumin/Globulin Ratio 0.3 (0.8-1.8); Alk Phos 158 U/L (50-136); Anion Gap 6 mmol/L (6-16); Aspartate Aminotrans (AST/SGOT 112 U/L (12-37); Bilirubin, Total 2.1 mg/dL (0.1-1.0); Blood Urea Nitrogen 7 mg/dL (8-24); Bun/Creatinine Ratio 15.3 (12.0-20.0); CO2, Blood 24 mmol/L (21-32); Calcium, Blood 8.3 mg/dL (8.5-10.1); Chloride, Blood 108 mmol/L (98-108); Creatinine, Blood 0.46 mg/dL (0.60-1.20); Globulin, Blood 4.9 g/dL (2.2-4.0); Glomerular Filtration Rate >60 (60-); Glucose, Blood 82 mg/dL (70-99); Potassium, Blood 3.9 mmol/L (3.5-5.5); Sodium, Blood 138 mmol/L (136-145); Total Protein, Blood 6.6 g/dL (6.4-8.2)
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
--- NOTE | 2021-05-20 16:41 | NUR ---
WOUND CARE COMPLETED TO BOTH KNEE'S, AND TWO WOUNDS ON ABD. WOUND ON LEFT KNEE HD SMALL AMT OF PURULENT DRAINAGE WITH REDNESS AROUND EDGES. ESCHAR COVERS MAJRITY OF WOUND. WOUND ON R KNEE HAS SCANT PURULENT DRAINAGE AROUND ESCHAR COVERS MAJORITY OF WOUND. WOUND ON R SIDE ABD HAS NO DRAINAGE, NO OPEN WOUND BUT REMAINS PINK AND MOIST. WOUND ON L SIDE OF ABD HAS MOD AMOUNT OF PURULENT DRAINAGE WITH SLIGHT FOUL ODOR. ESCHAR PRESENT ABOUT 3/4 OF WOUND. WOUNDS CLEANSED WITH WOUND CLEANSER AND PATTED DRY WITH STERILE GAUZE. ANTIBIOTIC OINTMENT APPLIED, COVERED WITH NON ADHERENT PAD, SECURED IN PLACE WITH TEGADERM. PT TOLERATED DRESSING CHANGES WITHOUT C/O PAIN. DR. SANCHEZ NOTIFIED OF RASH AND WOUND APPEARANCE. DR. SANCHEZ GAVE ORDER TO CONTINUE TO KEFLEX SINCE HE IS ALMOST COMPLETED COURSE. NO NEW ORDERS.
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
--- NOTE | 2021-05-21 00:51 | NUR ---
VERIFIED CAMERA CALLED SCU MONITOR AND VERIFIED VIDEO MONITORING IS IN PLACE
--- NOTE | 2021-05-21 04:18 | NUR ---
SHIFT SUMMARY ADMITTED FOR HEPATIC ENCEPHALOPATHY. FULL CODE. PLAN IS FOR PLACEMENT. PT IS CONFUSED, ATTEMPTING TO EXIT BED SO HE CAN "RETURN TO ASSISTED". HE BECAME AGITATED. MEDICATED PER EMAR WITH GOOD RESULT. NUMEROUS WOUNDS ON BODY FROM FALL AT HOME, BANDAGES CHANGED DAILY.
--- NOTE | 2021-05-21 10:47 | NUR ---
dr asked that wounds on knees, be left open to air, consult requested for wound on L chest, dr would like to see more healing, currently, loosely covered with a dry non adhisive dressing
--- NOTE | 2021-05-21 17:13 | NUR ---
remains confused but cooprative, often pushing the wrong buttons on the controller, has not tried to get out of bed this shift, wound care preformed as prescribed, will continue to monitor and treat as prescribed until share report with noc nurse
--- NOTE | 2021-05-21 19:15 | NUR ---
ASSUMED CARE RECEIVED REPORT FROM COURTNEY WHITAKER. PT RESTING, IN NAD. NO ACUTE NEEDS ASSESSED AT THIS TIME. CALL LIGHT, POSSESSIONS IN REACH, BED IN LOW AND LOCKED POSITION WITH ALARMS ON.
--- NOTE | 2021-05-22 03:38 | NUR ---
SPOKE TO DR. GOLDSTEIN REGARDING PT'S CONTINUOUS ATTEMPTS TO GET OOB UNASSISTED, AND PT'S RISK FOR FALLS. ORDERS RECEIVED.
--- NOTE | 2021-05-22 04:22 | NUR ---
SHIFT SUMMARY PT A&O TO SELF, APPEARS TO BE RESTING COMFORTABLY, IN NAD. VS REVIEWED,WNL. SLEPT ON AND OFF T/O NIGHT IN BETWEEN EPISODES OF GETTING OOB; CAMERA MONITORING VERIFIED AND MAINTAINED. NO OTHER ACUTE CONCERNS TO REPORT OVERNIGHT. DENIES PAIN OR DISCOMFORT. CALL LIGHT, POSSESSIONS IN REACH, BED IN LOW AND LOCKED POSITION WITH ALARMS ON. WILL CONTINUE TO PROVIDE CARE UNTIL REPORT GIVEN TO ONCOMING RN.
--- NOTE | 2021-05-22 18:29 | NUR ---
remains in mika vest, just asked if the battery could be changed in his bed so he could drive it faster, cooperative with care while engaged with staff but forgets quickly, saline locked, rm air, call light in reach, staff was just informed that "the bottom had fallen out of the bed and that it wouldn't move" staff assured him that everything remained as it was designed, will continue to monitor and treat until share report with noc nurse
--- NOTE | 2021-05-23 03:56 | NUR ---
SHIFT SUMMARY PT ASLEEP, IN NAD. NO ACUTE CONCERNS TO REPORT OVERNIGHT, APPEARED TO SLEEP WELL. HAS BEEN COOPERATIVE WITH CARES, MADE NO ATTEMPTS TO GET OOB WITHOUT ASSISTANCE. VS REVIEWED,WNL. NO ACUTE NEEDS ASSESSED AT THIS TIME. CALL LIGHT, POSSESSIONS IN REACH, BED IN LOW AND LOCKED POSITION WITH ALARMS ON. WILL CONTINUE TO PROVIDE CARE NEEDED UNTIL REPORT GIVEN TO ONCOMING RN.
--- NOTE | 2021-05-23 17:53 | NUR ---
SHIFT SUMMARY: PATIENT A/OX2-3 THIS SHIFT, CONFUSED ABOUT DATE/TIME AND SITUTATION AT TIMES. VSS, ON RA. PLEASANT AND COOPERATIVE WITH CARE. WOUND CARE COMPLETED THIS SHIFT TO BILATERAL KNEES AND L ABDOMEN. UP WITH 2 MAX ASSIST, FWW AND GB TO CHAIR/COMMODE. USING URINAL TO VOID. TOLERATING MS DIET.
--- NOTE | 2021-05-24 05:56 | NUR ---
SHIFT SUMMARY: AOX1-2 AT TIMES. WAS PLEASANT BUT DID BECOME IMPULSIVE COME EVENING TIME. WAS ATTEMPTED TO GET OUT OF BED TO FIND HIS CANE INSISTING HE NEEDED IT. ATIVAN 2MG WAS GIVEN, DURING WHICH HIS IV INFILTRATED GIVING HIM SLOW ABSORBTION OF THE MEDICATIONS. VS HAVE BEEN WNL. INCONTIENT/CONTIENT OF URINE. NO PAIN. DRESSING CDI. BED ALARM ON, CALL LIGHT IN REACH. NO FURTHER CHANGES TO NOTE.
--- NOTE | 2021-05-24 16:49 | NUR ---
PATIENT A/OX3 THIS SHIFT, CONTINUES TO HAVE SOME DIFFICULTY WITH WORD FINDING. UP WITH 2 ASSIST, FWW AND GB TO BSC AND CHAIR TODAY. DRESSING TO L ABDOMEN CHANGED THIS SHIFT USING CALCIUM ALGINATE AND FOAM DRESSING. WOUND CARE TO KNEES PER ORDERS USING MEDI HONEY AND FOAM DRESSING. VSS, ON RA. WORKING WITH PT. TOLERATING MS DIET. AWAITING PLACEMENT AT SNF.
--- NOTE | 2021-05-24 19:20 | NUR ---
ASSUMED CARE. CHRISTY IS ABLE TO STATE PLACE AND SELF. CONFUSED STILL ON DATES. HE IS ABLE TO VERBALIZE HE GETS CONFUSED OFTEN AND KNOWS THAT HE WILL NEED HELP WHEN HE GETS OUT. HE TALKED ABOUT NEVER DRINKING AGAIN AND TRYING TO KEEP ON THE STRAIGHT AND NARROW. DRESSINGS TO KNEES AND ABDOMIN HAS SOME DRAINAGE BUT ARE INTACT. DENIES PAIN. DENIES ANY NEEDS AT THIS TIME. BED ALARM ON. CALL LIGHT IN REACH.
--- NOTE | 2021-05-24 22:40 | NUR ---
CHRISTY HAS AN INCREASE IN CONFUSION, IS NOT REMEMBERING WHERE HE IS AND WHAT IS GOING ON. ATTEMPTED TO GET OUT OF BED SEVERAL TIMES. STATES HE HAS TO UNLOCK THE MOTEL ROOM DOOR AND GET THINGS OUT OF THE FRIG. RE-ORIENTED HIM. NOTED DRAINAGE FROM DRESSINGS, THEREFORE CHANGED ALL THREE DRESSINGS PER ORDER. ONCE I LEFT THE ROOM HE ATTEMPTED TO GET UP AGAIN NOT REMEMBERING WHERE HE WAS AT. GAVE 2MG OF ATIVAN PER ORDERS.
--- NOTE | 2021-05-25 06:01 | NUR ---
SHIFT SUMMARY: CHRISTY HAS CONSISTENTLY HAD INCREASE IN CONFUSION THAT BEGINS AROUND [id number] TIME OF THE NIGHT. HE BECOMES IMPULSIVE, THROWS THINGS IN THE ROOM, AND CAN'T REMEMBER ANY ORIENTATION STATEMENTS. HE HAS NEEDED ATIVAN TO HELP KEEP HIM SETTLED AND ALLOW HIM TO REST. DID PLACE CONDOM CATH ON HIM WHICH HAS HELPED PREVENT HIM THROWING HIS URINE ALL OVER THE ROOM. DRESSINGS WERE CHANGED DUE TO DRAINAGE. VS WNL, DENIED ANY PAIN. CALL LIGHT HAS REMAINED IN REACH AND BED ALARM ON.
--- NOTE | 2021-05-25 15:21 | NUR ---
PATIENT HAD A GOOD DAY. WORKED WITH PT AND MOBILITY CONTINUES TO IMPROVE. UP TO CHAIR WITH 1-2 ASSIST, FWW AND GB. USING URINAL TO VOID, CONTINENT/INCONTINENT OF STOOL. DRESSINGS TO KNEES AND ABDOMEN REMAIN C/D/I. TOLERATING SOFT DIET. FALL PRECAUTIONS IN PLACE. VSS, ON RA. PATIENT HOPEFUL FOR SNF PLACEMENT.
--- NOTE | 2021-05-26 05:18 | NUR ---
PT REMAINS X2, PLEASANT AND COOPERATVE. MILD AGGITATION/ANXIETY AT BEGINNING OF SHIFT, TREATED PER EMAR. STAFF WILL CONTINUE TO MONITOR FOR CHANGES.
[2021-05-26 05:31] LABS: Alanine Aminotransfer (ALT/SGP 132 U/L (12-78); Albumin/Globulin Ratio 0.4 (0.8-1.8); Alk Phos 138 U/L (50-136); Anion Gap 5 mmol/L (6-16); Aspartate Aminotrans (AST/SGOT 157 U/L (12-37); Bilirubin, Total 1.1 mg/dL (0.1-1.0); Blood Urea Nitrogen 12 mg/dL (8-24); Bun/Creatinine Ratio 27.3 (12.0-20.0); CO2, Blood 25 mmol/L (21-32); Calcium, Blood 8.5 mg/dL (8.5-10.1); Chloride, Blood 108 mmol/L (98-108); Creatinine, Blood 0.44 mg/dL (0.60-1.20); Globulin, Blood 5.1 g/dL (2.2-4.0); Glomerular Filtration Rate >60 (60-); Glucose, Blood 88 mg/dL (70-99); Magnesium, Blood 2.1 mg/dL (1.6-2.4); Phosphorus, Blood 3.7 mg/dL (2.5-4.9); Sodium, Blood 138 mmol/L (136-145); Total Protein, Blood 7.1 g/dL (6.4-8.2)
--- NOTE | 2021-05-26 17:07 | NUR ---
SHIFT SUMMARY NO ACUTE CHANGES, A&Ox2-3, DENIES ANY DISTRESS, CALM AND COOPERATIVE c CARE. LOOSE BMx2, OCCASIONAL INCONT WHEN ATTEMPTING TO USE URINAL. RASH/REDDNESS ON COCCYX, CREAM APPLIED PRN. DRESSINGS ON VERO KNEES AND LEFT ABD C/D/I. GOOD ORAL INTAKE. PT IMPROVING c AMBULATION AND CALLING FOR ASSISTANCE. CURRENTLY DANGLING @ BEDSIDE c CALL LIGHT WITHIN REACH.
--- NOTE | 2021-05-27 17:36 | NUR ---
SHIFT SUMMARY NO ACUTE CHANGES, A&Ox2-3, CALM AND COOPERATIVE c CARE, DENIES ANY DISTRESS. DRESSINGS ON BILATERAL KNEES AND JACY CHANGED THIS SHIFT. GOOD ORAL INTAKE, LOOSE STOOLS CONTINUE. WORKED c PT TODAY. PT IS CURRENTLY SITTING UP IN BED c CALL LIGHT WITHIN REACH EATING DINNER. BED ALARM ON FOR PT SAFETY AND NOT CALLING FOR ASSISTANCE @ TIMES.
--- NOTE | 2021-05-28 17:28 | NUR ---
SHIFT SUMMARY PATIENT DENIES PAIN, NAUSEA, AND SHORTNESS OF BREATH. PATIENT UP TO BSC/CHAIR TWO ASSIST W/ GAIT BELT FWW. EATING AND DRINKING WELL. PLEASANT AND COOPERATIVE WITH CARE. PENDING SNF DISCHARGE.
--- NOTE | 2021-05-29 05:41 | NUR ---
LYING IN LOW FOWLERS WITH EYES CLOSED FOR HIS COMFORT, HAS RESTED WELL THIS SHIFT. AAO X3, DUB[place], FOLLOWS ALL COMMANDS, CONFUSION NOTED. HAS DENIED PAIN AND DISCOMFORT AT THIS TIME. VVS STABLE, RESPIRATIONS EVEN AND UNLABORED ON RA. CONTINENT/INCONTINENT OF BOWEL AND BLADDER. DRESSINGS REMAIN C/D/I TO ABRASIONS AND CONTUSIONS TO BODY NOTED. HAS A VERY THIN BUILD. HAS BEEN COOPERATIVE AND PLEASANT WITH CARE. DENIES FURTHER NEEDS AT THIS TIME. SAFETY MEASURES IN PLACE. WILL CONTINUE TO MONITOR AND ADDRESS NEEDS THEY ARISE. WILL GIVE HAND OFF TO ONCOMING SHIFT USING SBAR DURING BEDSIDE REPORT.
--- NOTE | 2021-05-29 16:06 | NUR ---
SHIFT SUMMARY PATIENT DENIES PAIN, NAUSEA, AND SHORTNESS OF BREATH. PATIENT UP ONE TO TWO ASSIST W/FWW TO BSC OR BATHROOM. UP IN CHAIR FOR MEALS. EATING AND DRINKING WELL. WOUND CARE COMPLETED. PLEASANT AND COOPERATIVE WITH CARE, CONFUSED AND IMPULSIVE AT TIMES.
--- NOTE | 2021-05-30 03:37 | NUR ---
0300 PT AGITATED. PT MEDICATED PER EMAR WITH GOOD EFFECT. PT RESTING COMFORTABLY.
--- NOTE | 2021-05-30 03:43 | NUR ---
SUMMARY PT HAD NO NEW ISSUES NOTED. PT SLEPT WELL. PT HAD SOME AGITATION THIS AM. PT CURRENTLY WATCHING TV AND IS RELAXED. CALL LIGHT IN REACH AND BED ALARM ON.
--- NOTE | 2021-05-30 18:15 | NUR ---
SUMMARY- PT ALERT TO SELF, PLACE AND DATE. NOT SURE WHO PRESIDENT IS. USES CALL LIGHT ACCIDENTALLY. IMPULSIVE AND ATTEMPTS TO GET OOB UNATTENDED. SBA ADQ STRENGTH, UNSTESDY GAIT. AMBULATED WITH PT IN [place] TODAY ALL THE WAY DOWN TO THE WINDOW WITH A SLOW WIDE STANCE SHUFFELING GAIT AND WALKER. UP IN CHAIR MOST OF THE DAY. USES URINAL. STARTED NYSTATIN FOR JESUS RASH. DRESSINGS INTACT TO KNEES AND L CHEST. TOOK MEPILEX OFF TO COCCYX TO BE ABLE TO TREAT RASH. AWAITING PLACEMENT.
--- NOTE | 2021-05-31 05:15 | NUR ---
SUMMARY OF THE SHIFT PATIENT RESTING ON BED DURING SHIFT. NO ACUTE EVENT OVER NIGHT
--- NOTE | 2021-05-31 16:53 | NUR ---
SHIFT SUMMARY 61 Y MALE ORIGINALLY ADMITTED FOR ETOH WITHDRAWAL LIVER DISEASE AFTER BEING FOUND DOWN OUTSIDE OF HIS HOME. PT HAS BEEN A&O, PLEASANT AND COOPERATIVE WITH CARE AND PRIMARILY ON BEDREST AND HAS BEEN ABLE TO USE HIS CALL LIGHT APPROPRIATELY. PT HAS BEEN MEDICALLY STABLE FOR SEVERAL DAYS AND IS AWAITING PLACEMENT AT SNF. POTENTIAL PLACEMENT AT [facility] IN [place] IS PENDING. NO OTHER CHANGES THIS SHIFT.
--- NOTE | 2021-06-01 05:52 | NUR ---
SHIFT SUMMARY A/O 2-3, COOPERATIVE WITH CARE. PT ABLE TO UTILIZE CALL LIGHT T/O SHIFT. CONT/INCONT. ATTENDS IN PLACE. DENIES PAIN OR SOB. DRESSINGS TO L. CHEST WALL AND BILATERAL KNEES C/D/I. VSS, NO ACUTE CHANGES AT THIS TIME. CURRENTLY AWAITING PLACEMENT. BED IN LOWEST POSITION WITH CALL LIGHT IN REACH. WILL CONTINUE TO MONITOR AND REPORT TO ONCOMING RN.
--- NOTE | 2021-06-01 16:27 | NUR ---
SHIFT SUMMARY PT IS AOX2-3. PT DENIES PAIN, N/V, SOB. PT IS 1 ASSIST FOR TRANSFERS AND UNSTEADY. PT APPETITE IS GOOD. PLAN IS FOR PLACEMENT TO SNF. PT DID NOT HAVE VISITORS THIS SHIFT. PT IS IN BED, CALL LIGHT IN REACH, LOW POSITION.
--- NOTE | 2021-06-02 04:42 | NUR ---
BUSINESS MANAGEMENT INTERN SUMMARY NO ACUTE CHANGES THIS SHIFT. PT AAOX3 AND PLEASANT. COOPERATIVE WITH CARE. FORGETFUL AT TIMES BUT OTHERWISE HAS BEEN APPROPRIATE. BED ALARM ON FOR SAFETY PT FORGETS TO USE CALL LIGHT FOR ASSISTANCE. PT HAS SLEPT OFF/ON THROUGH THE NIGHT. VSS, WILL CONTINUE TO MONITOR.
--- NOTE | 2021-06-02 16:15 | NUR ---
SHIFT SUMMARY PT IS AOX2-3 AND FORGETFUL. PT DENIES PAIN, N/V, SOB. PT UP IN HALLS WITH PT WITH ONE PERSON ASSIST. PT APPETITE IS GOOD AND VSS. PT AWAITING PLACEMENT PLANS. PT DID NOT HAVE VISITORS THIS SHIFT. WOUND DRESSINGS C/D/I. PT UP TO CHAIR FOR MEALS. PT IS IN BED, CALL LIGHT IN REACH, LOW POSITION.
--- NOTE | 2021-06-03 01:07 | NUR ---
INTERMITTENT AGITATION, ANGER WITH STAFF TRYING TO ASSIST HIM TO THE BATHROOM. PO ATIVAN ADMINISTERED. BED ALARM ON. CALL LIGHT IN REACH. ON VIDEO CAMERA FOR SAFETY.
--- NOTE | 2021-06-03 02:55 | NUR ---
DIRECTOR SUPPLY SUMMARY AWAKE AT INTERVALS THROUGHOUT SHIFT. PUT PANTS ON IN THE NIGHT, VOICED CONFUSED STATEMENTS LIKE LOOKING FOR "HIS BEDROOM", AND BECAME AGITATED WHEN STAFF ATTEMPTED TO REDIRECT HIM, ANGRILY TOLD STAFF TO GET OUT OF THE ROOM. LATER MADE AN ATTEMPT TO GET OUT OF BED UNSTEADILY AND TRY TO GO TO THE RESTROOM. ASSISTED TO BATHROOM WITH USE OF WALKER, MEDICATED WITH ATIVAN AFTER RETURNING TO THE BED. BED ALARM ON. CALL LIGHT IN REACH. RESTING QUIETLY AT THIS TIME.
--- NOTE | 2021-06-03 06:28 | NUR ---
DRESSING (MEPILEX) OF LEFT ABD CHANGED. WOUND OPEN, SOME APPARENT BLEEDING. CALL LIGHT IN REACH
--- NOTE | 2021-06-03 08:55 | NUR ---
PT IN BED,AAOX3 NO ACUTE DISTRESS NOTED, AM MEDS GIVEN, REFUSED LACTULOSE DUE TO DIARRHEA STOOL THIS MORNING.PRN ATIVAN GIVEN FOR AGITATION
--- NOTE | 2021-06-03 15:53 | NUR ---
PT IS NON CPMLIANT WITH SAFETY PRECAUTONS, ATTEMPTS TO GET OUT OF BED, WITH THE SOUND OF THE ALARM, STAFF APPROACHESHIS ROOM ,PT SEEN TURNING OFF THE ALARM. PT REDIRECTED AND INTO BED, SNACK OFFERED, TOILETTED, CALL LIGHT IN PLACE, MONITORING CONTINUES.
--- NOTE | 2021-06-04 03:55 | NUR ---
PT IN BED AAO BUT FORGETFUL. DENIES PAIN. NO SEIZURE ACTIVITY DURING NIGHT. COMPLIED WITH MEDS. VSS. SAFETY AND COMFORT MEASURES MAINTAINED. CALL LIGHT WITHIN REACH. ATTEND IN PLACE. NO EVENT DURING SHIFT.
--- NOTE | 2021-06-04 07:49 | NUR ---
PT IN BED SLEEPY EASILY AROUSABLE, NO DISTRESS NOTED,DENIED PAIN ,CALL LIGHT WITHIN REACH, WILL CONT TO MONIOR.
--- NOTE | 2021-06-05 04:53 | NUR ---
PT IS AAOX3. FORGETFUL. RESTLESS AT TIMES. COMPLIED WITH MEDS. VSS. ATTEMPTED TO USE BEDSIDE COMMODE BUT UNABLE TO STAND. SPASTIC MOVEMENTS. ATTEND IN PLACE. CALL LIGHT WITHIN REACH. BED ALARM ON.
--- NOTE | 2021-06-05 08:25 | NUR ---
PT ALERT AND AGITATED, PRN ATIVAN 1MG TAB GIVEN, REDIRECTED, BREAKFAST TRAY SET UP, NO DISTRESS NOTED, CALL [facility] WITHIN REACH, VITALS WNL.
--- NOTE | 2021-06-05 18:28 | NUR ---
PT STABLE, DRESSING CHANGED ON VERO KNEE AND LT CHEST AREA, VITALS WNL, WAITING FOR PLACEMENT.CONTINENT OF B/B, USES THE URINAL, NO DISTRESS NOTED,CALL LIGHT WITHIN REACH.
--- NOTE | 2021-06-06 06:03 | NUR ---
PATIENT IS A/O X3. PATIENT DENIES PAIN OR DISTRESS. PATIENT APPEARED CONFUSED WITH PERIODS OF FORGETFULLNESS, PATIENT WAS EASILY REDIRECTABLE. PATIENT WAS UP TO USE THE BSCX2 WITH MINIMAL OUTPUT. PATIENT SLEPT WELL, NO ACUTE DISTRESS.
--- NOTE | 2021-06-06 14:45 | NUR ---
PT AAOX2-3, DNIED PAIN,MEDICATED FOR ANXIETY WITH GOOD EFFECT, AMBULATED WITH PT USING WALKER, TREATMENT DONE VERO KNEES AND LT CHEST WOUNDS. DARK RED NOTED ON RT KNEE, WOUND BED ON LT KNEE AND LT CHEST BEEFY RED GRNULATED TISSUE, NO FOUL ODOR NOTED,CALL LIGHT WITHIN REACH.
--- NOTE | 2021-06-07 05:25 | NUR ---
PATIENT IS ALERT AND AWAKE, PLEASANT AND COOPERATIVE. PATIENT DENIES PAIN OR ANY DISCOMFORT. PATIENT WAS NOTED WITH RESLESSNESS AND ANXIETY. PATIENT WAS MEDICATED WITH ATIVAN 1 MG WITH GOOD EFFECT. WILL CONTINUE TO MONITOR.
--- NOTE | 2021-06-07 10:34 | NUR ---
PT RECIEVED IN BED, MEDICATD FOR PRN AGITATION, NO PAIN VOICED,APPETITE ADEQUATE, CALL LIGHT IN PLACE.
--- NOTE | 2021-06-07 18:49 | NUR ---
PT AAOX2-3, DENIED PAIN ALL SHIFT, DRESSING CHANGED ON VERO KNEES AND LT CHEST WOUNDS, HOUSE CREAM APPLIED TO EXCORIATED BUTTOCKS.LT CHEST AND KNEE WOUNDS BED CLEANED, GRANULATED TISSUES NOTED, RT KNEE DARK SCALP STILL SLIGHTLY IN PLACE, SOME YELLOW SLOUGH NOTED HOLDING ON BETWEEN THE SCALP AND WOUND BED.NO FOUL ODOR NOTED,SEROSANGUINOUS DRAINAGE, CALL LIGHT IN PLACE WILL CONTINUE TO MONITOR.
--- NOTE | 2021-06-08 05:55 | NUR ---
PATIENT ALERT, PLEASANT AND COOPERATIVE. PATIENT WAS NOTED WITH ANXIETY AND RESTLESSNESS. PATIENT REQUESTED TO GO USE THE BATHROOM X1. PATIENT WAS ASSISTED TO BATHROOM, CONTINENT OF AN EXTRA LARGE BM. PATIENT WAS MEDICATED WITH ATIVAN 1MG PO FOR ANXIETY WITH GOOD EFFECT. WILL CONTINUE TO MONITOR.
--- NOTE | 2021-06-08 18:03 | NUR ---
PT AAOX2, VITALS STABLE NO ACUTE DISTRESS NOTED, LINENS CHANGED WHEN NOTED IS PT WET,VERO KNEES AND LT CHEST TREATMENT DONE, RT DARK SCALP OFF, SOME SLOUGH NOTED ON WOUND BED, LT KNEE AND LT CHEST WOUNDS CLEAN GRANULATED TISSUE NOTED. APPETITE ADEQUATE AND TOLERATED FLIUDS WELL, DENIED PAIN ALL SHIFT.CALL LIGHT IN PLACE ,BED ALARM SECURED,WILL CONT TO MONITOR.
--- NOTE | 2021-06-09 06:38 | NUR ---
PATIENT WAS NOTED WITH AGITATION AND ANXIETY, BUT EASILY REDIRECTABLE. PATIENT WAS GETTING OUT OF BED WITHOUT USING THE CALL LIGHT. PATIENT WAS MEDICATED WITH ATIVAN 1 MG WITH GOOD EFFECT. PATIENT SLEPT WELL THROUGH THE REST OF THE NIGHT, NO COMPLAIN VOICED. WILL CONTINUE TO MONITOR.
--- NOTE | 2021-06-09 18:46 | NUR ---
SHIFT SUMMARY: NO ACUTE EVENTS. HAD A SHOWER TODAY, DRESSING CHANGES DONE. A&O X 2, PLEASANT AND COOPERATIVE. HAD BM X 4 TODAY. GETTING UP WITH FWW AND SBA, GAIT VERY UNSTEADY. TOLERATING PO INTAKE, MODERATE APPETITE. DENIED PAIN. AWAITING PLACEMENT.
--- NOTE | 2021-06-10 02:04 | NUR ---
PATIENT WAS NOTED WITH INCREASED ANXIETY AND AGITATION. PATIENT WAS GIVEN ATIVAN 1 MG X1 WITH GOOD EFFECT. PATIENT DENIES PAIN OR DISCOMFORT. PATIENT NOTED WITH APPROPRIATE URINAL USE, EMPTIED 800ML. SLEPT WELL THROGH THE NIGHT. WILL CONTINUE TO MONITOR.
--- NOTE | 2021-06-10 18:24 | NUR ---
SHIFT SUMMARY: NO ACUTE EVENTS. AMBULATING TO BR WITH 1 PERSON AND FWW. AT ONE POINT, THOUGHT HE WAS GOING HOME AND PUT ON HIS PANTS AND SHOES, BUT WAS REDIRECTABLE. DRESSINGS CHANGED ON ALL WOUNDS. FORGETFUL AND CONFUSED AT TIMES. TOLERATING PO INTAKE. HAD TWO BM'S TODAY; LACTULOSE GIVEN. AWAITING PLACEMENT.
--- NOTE | 2021-06-11 05:11 | NUR ---
SHIFT SUMMARY PT IS A 61 Y/O MALE, ADMITTED FOR ETOH WITHDRAWAL AND HEPATIC ENCEPHALOPATHY. HE IS A&O X 1-2, 1PA. NO C/O PAIN, NAUSEA OR SOB. VITAL SIGNS STABLE. NO ACUTE CHANGES IN PT CONDITION NOTED. WILL CONTINUE TO MONITOR AND TREAT PER EMAR UNTIL HAND OFF TO DAY SHIFT RN.
--- NOTE | 2021-06-11 19:03 | NUR ---
SUMMARY- PT ALERT TO SELF, PLACE. ORIENTED TO OWN ABILITY. MOVES SELF AROUND IN BED AND FREQ HANGS FEET OF THE EDGE OF BED. PT USES URINAL. TOLERATING FOOD AND FLUIDS. VSS. AWAITING PLACEMENT.
--- NOTE | 2021-06-12 05:51 | NUR ---
SHIFT SUMMARY PT IS A 61 Y/O MALE, ADMITTED FOR ETOH WITHDRAWAL. HE IS A&O X 2, 1PA C FWW. NO C/O ACUTE PAIN, NAUSEA OR SOB. VITAL SIGNS STABLE. NO ACUTE CHANGES IN PT CONDITION NOTED DURING THE NIGHT. WILL CONTINUE TO MONITOR AND TREAT PER EMAR UNTIL HAND OFF TO DAY SHIFT RN.
--- NOTE | 2021-06-12 19:30 | NUR ---
SUMMARY- PT A/O X3- FORGETFUL TO DETAILS. MOTIVATED TO GET OUT OF HOSPITAL. AMBULATES SBA BATHROOM, GOOD STRENGTH, ATAXIC. TOLERATING FOOD AND FLUIDS. VOIDING WITH NO TROUBLE. LAST BM 06/10. [place]STATIN TO RED GROIN. AWAITING TX TO ADULT [facility].
--- NOTE | 2021-06-13 06:42 | NUR ---
SHIFT SUMMARY PT IS A 61 Y/O MALE, ADMITTED FOR WTOH WITHDRAWAL. HE IS A&0 X 2, THOUGH MORE CONFUSED TONIGHT COMPARED TO PREVIOUS TWO NIGHT SHIFTS. PT IS 1PA OUT OF BED, LIKES TO SIT AT EDGE OF BED. NO C/O ACUTE PAIN, NAUSEA OR SOB. VITAL SIGNS STABLE. NO OTHER ACUTE CHANGES IN PT CONDITION NOTED DURING THE NIGHT. WILL CONTINUE TO MONITOR AND TREAT PER EMAR UNTIL HAND OFF TO DAY SHIFT RN.
--- NOTE | 2021-06-13 17:26 | NUR ---
PATIENT IS ALERT AND ORIENTED AND COOPERATIVE WITH CARE. HE IS IMPULSIVE AT TIMES. WORKED WITH PT TODAY. 1-2PA TO BSC. WILL CONTINUE TO MONITOR
--- NOTE | 2021-06-14 02:34 | NUR ---
GUIDE DOMESTIC TOUR SUMMARY PATIENT HAD A FAIR SHIFT. NO COMPLAINTS OVER NIGHT. VITALS A RE STABLE. WILL CONTINUE TO MONITOR HIM.
--- NOTE | 2021-06-14 16:55 | NUR ---
SHIFT SUMMARY PATIENT IS ALERT AND ORIENTED X2-3. NO ACUTE EVENTS THIS SHIFT. PATIENT HAS NOT HAD ANY COMPLAINTS OF PAIN, NAUSEA, VOMMITING THIS SHIFT. PATIENT IS A 1 PERSON ASSIST TO BEDSIDE COMMODE. VITAL SIGNS REVIEWED. WILL CONTINUE TO MONITOR UNTIL SHIFT CHANGE.
--- NOTE | 2021-06-15 06:22 | NUR ---
VSS. NO C/O OF PAIN. PT SLEPT FOR ABOUT 6 HRS THIS SHIFT.PT MADE SEVERAL ATTEMPTS TO TURN BED ALARM OFF. COMPLETED DRESSING CHANGE. NO ACUTE ISSUES NOTED.SAFETY MEASURES IN [facility], CALL LIGHT IN REACH
--- NOTE | 2021-06-15 17:07 | NUR ---
PT IS A/OX3, MILDLY FORGETFULL AT TIMES. PT HAS BEEN PLEASANT AND COOPERATIVE T/O THE DAY. THE PT APPEARS TO BE BREATHING EASILY ON RA AT THIS TIME. THE PT IS UP WITH STANDBY ASSISST USEING THE FWW TO THE BATHROOM. THE PT WORKED WITH THE PHYSICAL THERAPIST TODAY AND AMBULATED OUT INTO THE [facility]. CALL LIGHT IN REACH. BED ALARM ON, WILL CONTINUE TO MONITOR AND ASSESS FOR CHANGES
--- NOTE | 2021-06-16 07:06 | NUR ---
VSS. NO C/O OF PAIN. AOX2-3 WITH PERIODIC CONFUSION AND AGITATION. PT MADE SEVERAL ATTEMPTS TO TURN BED ALARM OFF. HE HAD 2 INSTANCES OF INCONTINENCE. NO OTHER ISSUES NOTED. SAFETY MEASURES IN PLACE
--- NOTE | 2021-06-16 17:30 | NUR ---
PT IS A/OX2 PERSON AND PLACE. THE PT APPEARS TO BE BREATHING EASILY ON RA AT THIS TIME. THE PT DENIES ANY PAIN TODAY. THE PT IS UP USEING THE FWW WITH MINIMAL ASSIST. CALL LIGHT IN REACH WILL. PT CONTINUES TO BARBIE FOR PLACEMENT
--- NOTE | 2021-06-17 06:15 | NUR ---
PT AOX2. HE HAS HAD BRIEF PERIODS OF CONFUSION.VSS. NO C/O OF PAIN. DRESSINGS CHANGED THIS SHIFT. TOLERATED WELL. NO ACUTE ISSUES NOTED. WILL CONTINUE TO MONITOR. SAFTEY MEASURES IN PLACE, CALL LIGHT IN REACH.
--- NOTE | 2021-06-17 17:33 | NUR ---
PT IS A/OX3, PLEASANT AND COOPERATIVE. UP WITH STAND BY ASSIST TO THE BATHROOM USEING THE FWW. THE PT APPEARS TO BE BREATHING EASILY ON RA AT THIS TIME. THE PT DENIED ANY PAIN T/O THE DAY. PT HAS HAD SEVRAL FORMED SOFT BM'S. THE PTS WOUND DRESSINGS ARE INTACT. CALL LIGHT IN REACH. WILL CONTINUE TO MONITOR AND ASSESS FOR CHANGES
--- NOTE | 2021-06-18 04:30 | NUR ---
SUMMARY NO NEW ISSUES NOTED. PT PLESANT AND COOPERATIVE. PT SLEPT WELL T/O SHIFT. CALL LIGHT IN REACH AND BED ALARM ON.
--- NOTE | 2021-06-18 18:30 | NUR ---
Alert and oriented x3 , able to make needs known. Denies any pain. One person assist with ADLS. Denies any SOB, headache , dizziness and chest pain. Ambulate to bathroom with SBA uisng a walker . Bilateral knee dressing change was done, improving. Vital signs are stable. Continue to monitor.
--- NOTE | 2021-06-19 04:16 | NUR ---
SUMMARY NO ISSUES NOTED. PT PLESANT AND COOPERATIVE. PT REMAINS UNSTEADY AND A HIGH FALL RISK. CALL LIGHT IN REACH, BED ALARM ON AND ON CAMERA.
--- NOTE | 2021-06-19 06:34 | NUR ---
0615 PT BECAME VERY AGITATED AND AGGRESSIVE. PT VERY UNSTEADY AND INSISTING ON GETTING OUT OF BED. PT STATES "I HAVE TO GO!". PT HAS NO IV ACCESS AND ONLY PO MEDS FOR AGITATION. PT REFUSED TO TAKE ANY MEDS. WILL CONTINUE TO MONITOR.
--- NOTE | 2021-06-19 19:10 | NUR ---
Alert and oriented x3 , able to make needs known. Ambulate to bathroom with SBA using FFW. Denies any pain. Vital signs are stable. Fall risk and rarely used call buttom . Denies any SOB , headache, dizziness , chest pain and nausea. Bed alarm on and call light within reach. Bed bilateral knee dressing intact. ABODMEN dressing CDI. Continue to monitor.
--- NOTE | 2021-06-20 04:24 | NUR ---
SUMMARY NO NEW ISSUES NOTED. PT STILL HAS PERIODS OF BEING IMPULSIVE AND GETS AGGRESSIVE. PT CALMS DOWN AFTER A PERIOD. PT CURRENTLY RESTING QUIETLY WATCHING TV. CALL LIGHT IN REACH, BED ALARM ON AND ON CAMERA.
--- NOTE | 2021-06-20 17:48 | NUR ---
Alert and oriented x3 , able to make needs known . Denies any pain. Up to bathroom x3 , had large BM. Vital signs are stable. Bilateral knee dressing CDI. Abdomen dressing done and CDI. One person assist witH ADLS. Continue to monitor
--- NOTE | 2021-06-21 19:32 | NUR ---
Alert and oriented x3 , able to make needs known . Denies any pain. one person assist with ADLs. Walked to bathroom with SBA uisng a walker. Bilateral knee dressing CDI. Abdomen dessing CDI. Bed alarm on and call light within reach. Vital signs are stable. worked with PT/OT for strength and endurance, it was tolerated. Continue to monitor.
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
--- NOTE | 2021-06-23 03:16 | NUR ---
SHIFT SUMMARY PATIENT HAD NO ACUTE CHANGES OBSERVED. AXOX 3 AND IMPULISVE WITH MULTIPLE OOB ATTEMPTS ON BED ALARM. SBA W/FWW TO BSC. DENIES PAIN, SOB, AND N/V. DRESSINGS C/D/I. NO IV ACCESS. TALKED ABOUT ENTERING A REHAB PROGRAM WHEN APPROVED. CALL LIGHT IN REACH. BED IN LOWEST POSITION AND ALARM ACTIVATED. WILL CONTINUE TO MONITOR UNTIL DAY SHIFT NURSE ASSUMES CARE.
--- NOTE | 2021-06-23 18:31 | NUR ---
Alert and oriented x3. Denies any pain, nausea , headache , dizziness or chest pain. Used walker to ambulate to bathroom with SBA ,though unsteady sometimes. Vital signs are stable. Bilateral knee dressing CDI, No drainage noted. Left abdomen dressing CDI.Impulsive and sometimes couldn't call for help. Bed alarm and call light within reach.
--- NOTE | 2021-06-24 02:23 | NUR ---
MULTIPLE CAMERA EVENTS. TECH CALLING THAT PATIENT IS OOB X 4 IN LAST THIRTY MINUTES. PATIENT UNABLE TO FOLLOW DIRECTIONS AT THIS TIME. REDIRECTS IN A SHORT TIME BACK INTO BED.
--- NOTE | 2021-06-24 03:15 | NUR ---
SHIFT SUMMARY PATIENT HAD NO ACUTE CHANGES OBSERVED. AXOX 3 AND IMPULSIVE NOT FOLLOWING DIRECTIONS AT TIMES. ON CAMERA AND MULTIPLE OOB ATTEMPTS ACTIVATING BED ALARM. PATIENT WILL REDIRECT. NO IV ACCESS. DENIES CHEST PAIN, SOB, AND N/V. BILATERAL KNEE DRESSINGS C/D/I. LEFT ABDOMEN DRESSING C/D/I. WATCHED TV T/O THE SHIFT. USED MULTIPLE DRINKING CUPS FOR URINAL. PATIENT EDUCATED ON THE USE OF URINAL. CALL LIGHT IN REACH. BED IN LOWEST POSITION AND ALARM ACTIVATED. WILL CONTINUE TO MONITOR UNTIL DAY SHIFT NURSE ASSUMES CARE.
--- NOTE | 2021-06-24 19:00 | NUR ---
Alert and oriented x3 , able to make needs known. Anxious and implusive sometimes. Denies any pain, chest pain, shortness of breath, headache or dizziness. Bilateral knee dressing change was done and the site is CDI. Abdomen dressing was done , improving , the site is CDI. Used walker to ambulate to bathroom with SBA. Patient hardly call for help though call light is within reach. Staff from [facility] came to evaluate Mr Victor today. Possible discharge to [facility] on SUNDAY. Vital signs are stable. Continue to monitor.
--- NOTE | 2021-06-25 04:35 | NUR ---
SHIFT SUMMARY A/OX3, FORGETFUL AND IMPULSIVE AT TIMES. UNSTEADY GAIT, 1 ASSIST WITH GB AND FWW. DENIES PAIN OR SOB. VSS, NO ACUTE CHANGES AT THIS TIME. BED IN LOWEST POSITION WITH CALL LIGHT IN REACH. WILL CONTINUE TO MONITOR AND REPORT TO ONCOMING RN.
--- NOTE | 2021-06-25 18:26 | NUR ---
Alert and oriented x3 , able to make needs known. Denies any pain, chest pain, shortness of breath , dizziness or headache. Vital signs are stable. One person assist with ADLS. Used FFW ambulation to bathroom, unsteady gait. Bilateral knee dressing CDI, ABDOMEN dressing CDI. Bed alarm on and call light within reach. Continue to monitor.
--- NOTE | 2021-06-26 04:23 | NUR ---
SHIFT SUMMARY A/O 2-3, FORGETFUL AND IMPULSIVE AT TIMES. EASILY REDIRECTED. DENIES PAIN OR SOB. 1 ASSIST WITH FWW AND GB D/T UNSTEADY GAIT. VSS, NO ACUTE CHANGES AT THIS TIME. BED IN LOWEST POSITION WITH CALL LIGHT IN REACH. WILL CONTINUE TO MONITOR AND REPORT TO ONCOMING RN.
--- NOTE | 2021-06-26 06:27 | NUR ---
UPDATE PT INCREASINGLY AGITATED THIS AM. SETTING OFF BED ALARM AND BELIEVES HE IS IN A PENITENTIARY. DIFFICULTY REDIRECTING. ATTEMPTED TO GIVE PO MEDICATIONS, PT REFUSED. CURRENTLY SITTING UP IN BED WITH BED ALARM ON. WILL CONTINUE TO MONITOR.
--- NOTE | 2021-06-26 19:05 | NUR ---
Alert and oriented x3, anxious this morning and implusive sometimes. Denies any pain. One person assist with ADLS. Used walker for ambulation to bathroom with SBA, unsteady gait. Vital signs are stable. Bilateral knee dressing changes was done , improving. Left abdomen dressing change was done. Bed alarm on and call light within reach. Ativan was given for anxiety and it was effective. Continue to monitor.
--- NOTE | 2021-06-27 05:18 | NUR ---
SHIFT SUMMARY A/OX2, FORGETFUL AND IMPULSIVE. UNSTEADY GAIT, 1 ASSIST WITH FWW AND GB. VSS, BED IN LOWEST POSITION WITH CALL LIGHT IN REACH. WILL CONTINUE TO MONITOR AND REPORT TO ONCOMING RN.
--- NOTE | 2021-06-27 19:35 | NUR ---
Alert and oriented x2 with some anxiety. Denies any pain , chest pain, dizziness , headache or shortness of breath. Vital signs are stable. Bilateral knees dressing change was done and the sites wounds are improving. Left abdomen wound site is also improving. Bed alarm on and call light within reach. Continue to monitor.
--- NOTE | 2021-06-28 05:05 | NUR ---
SHIFT SUMMARY A/OX2, FORGETFUL AND IMPULSIVE AT TIMES. UNSTEADY GAIT, 1 ASSIST WITH FWW AND GB. DENIES PAIN OR SOB. VSS, NO ACUTE CHANGES AT THIS TIME. BED IN LOWEST POSITION WITH CALL LIGHT IN REACH. WILL CONTINUE TO MONITOR AND REPORT TO ONCOMING RN.
--- NOTE | 2021-06-28 16:56 | NUR ---
NO ACUTE CHANGES. PT AOX3 WITH CONFUSION. PT NEEDS BED ALARM AND IS A ONE PERSON WITH WALKER TO RESTOOM. PT IS VERY STIFF AND AND UNSTEADY WALKING. PT DOES NOT USE CALL LIGHT WELL AND BED ALARM IS IN PLACE. WILL CONTINUE TO MONITOR.
--- NOTE | 2021-06-29 04:47 | NUR ---
SHIFT SUMMARY A/OX2, IMPULSIVE AT TIMES. EASILY REDIRECTED. 1 ASSIST WITH FWW AND GB D/T UNSTEADY GAIT. VSS, NO ACUTE CHANGES AT THIS TIME. BED IN LOWEST POSITION WITH CALL LIGHT IN REACH. WILL CONTINUE TO MONITOR AND REPORT TO ONCOMING RN.
--- NOTE | 2021-06-29 16:53 | NUR ---
SHIFT SUMMARY PATIENT IS ALERT AND ORIENTED X3, PLEASANT AND COOPERATIVE WITH CARE. ON RA. WALKS TO THE BATHROOM 1 PERSON STAND BY ASSIST. PATIENT IS IMPULSIVE AT TIMES. NO ACUTE CHANGES THIS SHIFT. VITAL SIGNS STABLE. BED ALARM ON. BED IN LOWEST POSTION. THIS NURSE WILL CONTINUE TO MONITOR PATIENT UNTIL SHIFT REPORT IS GIVEN TO ONCOMING NURSE.
--- NOTE | 2021-06-30 04:58 | NUR ---
PT IS A&OX 4. PTS GAIT IS VERY UNSTEADY AND HE CAN BE IMPULSIVE. STANDY ASSIST OF ONE. PT HAS SCRAPES TO HIS KNEES COVERED WITH PROTECTIVE MEPOLEX.
[2021-06-30 09:03] LABS: Hematocrit 47.4 % (37.0-53.0); Hemoglobin 16.2 g/dL (13.5-17.5); Mean Corpuscular HGB 32.3 pg (26.0-34.0); Mean Corpuscular HGB Conc 34.2 g/dL (31.5-36.5); Mean Corpuscular Volume 95 fL (80-100); Mean Platelet Volume 10.5 fL (9.1-12.4); Platelet Count 123 K/mm3 (150-400); RDW Coefficient Variation 12.1 % (11.7-14.2); RDW Standard Deviation 42.4 fL (35.1-46.3); Red Blood Cell Count 5.01 M/mm3 (4.30-5.90); White Blood Cell Count 5.55 K/mm3 (4.00-11.30)
[2021-06-30 09:19] LABS: Alanine Aminotransfer (ALT/SGP 82 U/L (12-78); Albumin/Globulin Ratio 0.7 (0.8-1.8); Alk Phos 103 U/L (50-136); Anion Gap 9 mmol/L (6-16); Aspartate Aminotrans (AST/SGOT 72 U/L (12-37); Bilirubin, Total 0.9 mg/dL (0.1-1.0); Blood Urea Nitrogen 13 mg/dL (8-24); Bun/Creatinine Ratio 24.3 (12.0-20.0); CO2, Blood 24 mmol/L (21-32); Calcium, Blood 9.3 mg/dL (8.5-10.1); Chloride, Blood 108 mmol/L (98-108); Creatinine, Blood 0.53 mg/dL (0.60-1.20); Globulin, Blood 4.5 g/dL (2.2-4.0); Glomerular Filtration Rate >60 (60-); Glucose, Blood 132 mg/dL (70-99); Potassium, Blood 4.1 mmol/L (3.5-5.5); Sodium, Blood 141 mmol/L (136-145); Total Protein, Blood 7.5 g/dL (6.4-8.2)
--- NOTE | 2021-06-30 18:03 | NUR ---
SHIFT SUMMARY; PATIENT VERY IMPULISIVE TODAY. JUMPING OUT OF BED. HE GETS DRESSED IN HIS PANTS AND PUTS HIS SHOES ONE 2 TIMES DURING DAY SAYING THAT "I AM GOING TO [place] OR [place] TODAY. HE IS EASILY REDIRECTABLE WHEN TOLD HE IS NOT LEAVING TODAY AND SETTLES DOWN WATCHING TV AND TAKES HIS STREET CLOTHING OFF HE SAYS "HE IS NOT COMFORTABLE LAYING IN BED WITH PANTS ON" PT HAS NO IV. HE TAKES HIS MEDICATIONS WHOLE WITH WATER. IS STILL WAITING FOR PLACEMENT. FELIX VILLEGAS RN
--- NOTE | 2021-07-01 04:29 | NUR ---
SHIFT SUMMARY NO ACUTE CHANGES THIS EVENING. DRESSING TO ABRASION ON LEFT CHEST/UPPER ABD CHANGED. PT REPORTS WOUND IS PAINFUL. CLEANED WITH WOUND CLEANSER AND REDRESSED WITH CALCIUM ALGINATE AND A MEPILEX. PT EXPRESSES FRUSTRATION WITH CURRENT SITUATION, STATING HE WILL SOON BE GOING TO HIS NEXT "HALF-WAY" WHEN SPEAKING OF PLACEMENT. OTHERWISE PT HAD AN UNEVENTFUL NIGHT. COOPERATIVE WITH CARE. VITAL SIGNS STABLE.
--- NOTE | 2021-07-01 19:29 | NUR ---
SHIFT SUMMARY; PATIENT HAD UNEVENTFUL DAY. RESTED COMFORTABLY IN BED MOST OF DAY. UP TO SHOWER WITH ONE PERSON ASSIST. DRESSING CHANGE TO BILATERL KNEE'S MEPELEX RE APPLIED. FELIX VILLEGAS RN
[2021-07-02 05:35] LABS: BASOPHILS ABSOLUTE AUTO 0.07 K/mm3 (0.00-0.23); BASOPHILS PERCENT AUTO 1 % (0-2); EOSINOPHILS ABSOLUTE AUTO 0.14 K/mm3 (0.00-0.68); EOSINOPHILS PERCENT AUTO 3 % (0-6); Hematocrit 44.7 % (37.0-53.0); Hemoglobin 15.1 g/dL (13.5-17.5); IMMATURE GRAN PERCENT AUTO 0 % (0-1); LYMPHOCYTES ABSOLUTE AUTO 2.51 K/mm3 (0.84-5.20); LYMPHOCYTES PERCENT AUTO 46 % (21-46); MONOCYTES ABSOLUTE AUTO 0.83 K/mm3 (0.16-1.47); MONOCYTES PERCENT AUTO 15 % (4-13); Mean Corpuscular HGB 32.3 pg (26.0-34.0); Mean Corpuscular HGB Conc 33.8 g/dL (31.5-36.5); Mean Corpuscular Volume 96 fL (80-100); Mean Platelet Volume 10.6 fL (9.1-12.4); NEUTROPHILS ABSOLUTE AUTO 1.95 K/mm3 (1.96-9.15); NEUTROPHILS PERCENT AUTO 36 % (41-73); Platelet Count 118 K/mm3 (150-400); RDW Standard Deviation 42.7 fL (35.1-46.3); Red Blood Cell Count 4.67 M/mm3 (4.30-5.90)
[2021-07-02 06:21] LABS: Anion Gap 8 mmol/L (6-16); Blood Urea Nitrogen 16 mg/dL (8-24); Bun/Creatinine Ratio 33.6 (12.0-20.0); CO2, Blood 25 mmol/L (21-32); Calcium, Blood 9.1 mg/dL (8.5-10.1); Chloride, Blood 108 mmol/L (98-108); Creatinine, Blood 0.48 mg/dL (0.60-1.20); Glomerular Filtration Rate >60 (60-); Glucose, Blood 92 mg/dL (70-99); Sodium, Blood 141 mmol/L (136-145)
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
--- NOTE | 2021-07-02 15:46 | NUR ---
SHIFT SUMMARY PT AWAKE AT START OF SHIFT, RESTING QUIETLY WATCHING TV. SITTING UP TO EOB FOR MEALS. PT IS IMPULSIVE WHEN NEEDING SOMETHING. VERY UNSTEADY WITH JERKY MOTIONS IN ALL EXTREMITIES. PT HAS DIFFICULTY USING ARMS OR LEGS FOR ADL'S. AMBULATED IN JES[facility], PER PT REQUEST, USING FWW AND GB WITH 2P ASSIST. PT WAITING FOR PLACEMENT. DENIES FURTHER NEEDS AT THIS TIME. CALL LT IN REACH. BED ALARM ON FOR SAFETY.
--- NOTE | 2021-07-03 04:03 | NUR ---
SHIFT SUMMARY VSS, NO ACUTE CHANGES. ROOM AIR. NO IV ACCESS. CHRISTY IS A&0 TO PERSON, AND SOMETIMES PLACE. HE IS IMPULSIVE AND CONFUSED/FORGETFUL OF HIS OWN LIMITATIONS. SBA TO BATHROOM, ALSO USES URINAL INDEPENDENTLY.
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
--- NOTE | 2021-07-04 04:10 | NUR ---
SHIFT SUMMARY PRESENTLY, VSS AND NO ACUTE CHANGES FOR CHRISTY. HE DID RECEIVE ONE PRN OF TRAMADOL 25MG PO FOR REPORTED PAIN TO LCW ABRASION. CHRISTY STATED THAT IT "HURT MORE TODAY THAN YESTERDAY" AND RATED IT 6/10. AFTER THE TRAMADOL, CHRISTY SLEPT MOST OF THE SHIFT. ROOM AIR. ORDER FOR NO IV ACCESS. A&O X 1 (SELF), CHRISTY STATED, "I'M TRYING TO REMEMBER WHERE THE PAST 2-3 MONTHS WENT" AND REQUIRED REORIENTATION TO LOCATION/COURSE OF HOSPITALIZATION. HE BELIEVES HE IS IN AN APARTMENT COMPLEX. HE REMAINED PLEASANT WITH STAFF AND RESPONSIVE TO REDIRECTION.
[2021-07-04 05:44] LABS: Alanine Aminotransfer (ALT/SGP 67 U/L (12-78); Albumin, Blood 2.6 g/dL (3.4-5.0); Albumin/Globulin Ratio 0.6 (0.8-1.8); Alk Phos 91 U/L (50-136); Anion Gap 9 mmol/L (6-16); Aspartate Aminotrans (AST/SGOT 50 U/L (12-37); Bilirubin, Total 0.6 mg/dL (0.1-1.0); Blood Urea Nitrogen 14 mg/dL (8-24); Bun/Creatinine Ratio 32.1 (12.0-20.0); CO2, Blood 23 mmol/L (21-32); Calcium, Blood 9.2 mg/dL (8.5-10.1); Chloride, Blood 108 mmol/L (98-108); Creatinine, Blood 0.44 mg/dL (0.60-1.20); Globulin, Blood 4.5 g/dL (2.2-4.0); Glomerular Filtration Rate >60 (60-); Glucose, Blood 157 mg/dL (70-99); Magnesium, Blood 1.6 mg/dL (1.6-2.4); Phosphorus, Blood 4.2 mg/dL (2.5-4.9); Potassium, Blood 3.9 mmol/L (3.5-5.5); Sodium, Blood 140 mmol/L (136-145); Total Protein, Blood 7.1 g/dL (6.4-8.2)
[2021-07-04 05:46] LABS: Hematocrit 45.2 % (37.0-53.0); Hemoglobin 15.2 g/dL (13.5-17.5); Mean Corpuscular HGB 31.6 pg (26.0-34.0); Mean Corpuscular HGB Conc 33.6 g/dL (31.5-36.5); Mean Corpuscular Volume 94 fL (80-100); Mean Platelet Volume 10.9 fL (9.1-12.4); Platelet Count 116 K/mm3 (150-400); RDW Coefficient Variation 12.2 % (11.7-14.2); RDW Standard Deviation 42.7 fL (35.1-46.3); Red Blood Cell Count 4.81 M/mm3 (4.30-5.90); White Blood Cell Count 5.65 K/mm3 (4.00-11.30)
--- NOTE | 2021-07-04 18:06 | NUR ---
SHIFT SUMMARY: PT A/O TO SELF AND PLACE, BUT THINKS HE IS LEAVING TOMORROW TO GO HOME. PT RE-ORIENTED TO SITUATION. PLEASANT AND COOPERATIVE WITH CARE. STANDBY ASSIST TO BATHROOM. WOUND CARE COMPLETED TODAY TO WOUNDS. WOUND ON LEFT ABD HAS PURULENT DRAINAGE. PT DID NOT C/OF PAIN TO SITE TODAY. NO ACUTE CHANGES TODAY.
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
--- NOTE | 2021-07-06 18:42 | NUR ---
SHIFT SUMMARY: PT A/O X 2 STANDBY ASSIST WITH WALKER AND GAIT BELT. PT PLEASANT AND COOPERATIVE. WAS UPSET TODAY HE HAS NOT BEEN DISCHARGED YET BUT WAS APPROPRIATE WITH INTERACTION. HE IS TRYING TO FIND HIS DAUGHTERS NUMBER. ATTEMPTED TO ASSIST WITH FINDING DAUGHTER'S NUMBER IN [employer] BUT UNFORTUNATELY WAS NOT LISTED UNDER THE NAME HE GAVE. WOUND CARE COMPLETED TODAY AND WOUND TO [facility] DID NOT HAVE PURULENT DRAINAGE TODAY IT DID PAST TWO DAYS CARING FOR HIM. HE HAD SMALL AMOUNT OF BLOODY DISCHARGE. PHOTOS UPDATED AND IN CHART. NO ACUTE CHANGES THIS SHIFT.
--- NOTE | 2021-07-07 04:36 | NUR ---
SHIFT SUMMARY PT WAS ADMITTED FOR ETOH. FULL CODE. PLACEMENT IS PENDING.PT IS LESS AGITATED TODAY. NO EVENTS ON THIS SHIFT.
[2021-07-07 06:40] LABS: Alanine Aminotransfer (ALT/SGP 64 U/L (12-78); Albumin, Blood 2.7 g/dL (3.4-5.0); Albumin/Globulin Ratio 0.7 (0.8-1.8); Alk Phos 93 U/L (50-136); Anion Gap 8 mmol/L (6-16); Aspartate Aminotrans (AST/SGOT 52 U/L (12-37); Bilirubin, Total 0.7 mg/dL (0.1-1.0); Blood Urea Nitrogen 14 mg/dL (8-24); Bun/Creatinine Ratio 28.7 (12.0-20.0); CO2, Blood 25 mmol/L (21-32); Calcium, Blood 9.3 mg/dL (8.5-10.1); Chloride, Blood 108 mmol/L (98-108); Creatinine, Blood 0.49 mg/dL (0.60-1.20); Glomerular Filtration Rate >60 (60-); Glucose, Blood 83 mg/dL (70-99); Magnesium, Blood 1.8 mg/dL (1.6-2.4); Phosphorus, Blood 4.6 mg/dL (2.5-4.9); Sodium, Blood 141 mmol/L (136-145); Total Protein, Blood 6.7 g/dL (6.4-8.2)
[2021-07-07 07:01] LABS: BASOPHILS ABSOLUTE AUTO 0.06 K/mm3 (0.00-0.23); BASOPHILS PERCENT AUTO 1 % (0-2); EOSINOPHILS ABSOLUTE AUTO 0.15 K/mm3 (0.00-0.68); EOSINOPHILS PERCENT AUTO 3 % (0-6); Hematocrit 42.8 % (37.0-53.0); Hemoglobin 14.7 g/dL (13.5-17.5); IMMATURE GRAN ABSOLUTE AUTO 0.01 K/mm3 (0.00-0.10); IMMATURE GRAN PERCENT AUTO 0 % (0-1); LYMPHOCYTES PERCENT AUTO 46 % (21-46); MONOCYTES ABSOLUTE AUTO 0.94 K/mm3 (0.16-1.47); MONOCYTES PERCENT AUTO 17 % (4-13); Mean Corpuscular HGB 32.2 pg (26.0-34.0); Mean Corpuscular HGB Conc 34.3 g/dL (31.5-36.5); Mean Corpuscular Volume 94 fL (80-100); Mean Platelet Volume 11.1 fL (9.1-12.4); NEUTROPHILS ABSOLUTE AUTO 1.78 K/mm3 (1.96-9.15); NEUTROPHILS PERCENT AUTO 33 % (41-73); Platelet Count 119 K/mm3 (150-400); RDW Coefficient Variation 12.1 % (11.7-14.2); RDW Standard Deviation 42.2 fL (35.1-46.3); Red Blood Cell Count 4.57 M/mm3 (4.30-5.90); White Blood Cell Count 5.44 K/mm3 (4.00-11.30)
--- NOTE | 2021-07-07 17:39 | NUR ---
SHIFT SUMMARY NO ACUTE CHANGES NOTED TO PT THIS SHIFT. PT AAOX3, ABLE TO MAKE NEEDS KNOWN. SOME CONFUSION NOTED, IMPULSIVE AT TIMES. REDIRECTABLE BY STAFF. NO C/O PAIN OR ANY DISCOMFOR THIS SHIFT. NO C/O CP, SOB, OR N/V/D. BED AT LOWEST POSITION W/ ALARM ON FOR SAFETY. CALL LIGHT WITHIN REACH.
--- NOTE | 2021-07-08 04:19 | NUR ---
HOT TOP LINER HELPER SUMMARY PATIENT HAD A FAIR SHIFT. VITALS STABLE. STILL A LITTLE IMPULSIVE, BUT EASILY REDIRECTABLE. WILL CONTINUE TO MONITOR HIM. SAFETY MEASURES IN PLACE,
--- NOTE | 2021-07-08 16:17 | NUR ---
SHIFT SUMMARY PT IS AO AND PLEASANT. PT DENIES PAIN, N/V, SOB. PT IS ONE ASSIST IN ROOM. PT AMBULATED THE HALLS WITH THIS RN AND WORKED WITH PT/OT TODAY. PT APPETITE IS GOOD. NO EVENTS THIS SHIFT AND PT AWAITING PLACEMENT. PT IS IN BED, CALL LIGHT IN REACH, LOW POSITION.
--- NOTE | 2021-07-09 05:21 | NUR ---
BLIND SLAT STAPLING MACHINE OPERATOR SUMMARY PATIENT HAD A FAIR SHIFT. NO EVENTS OVERNIGHT. HIS VITALS WERE STABLE. WILL CONTINUE TO MONITOR HIM. SAFETY MEASURFES IN PLACE.
--- NOTE | 2021-07-09 17:12 | NUR ---
SHIFT SUMMARY PT IS AO. PT DENIES PAIN, N/V, SOB. THIS RN AMBULATED WITH PT IN HALLS. PT IS ONE ASSIST FOR TRANSFERS. PT APPETITE IS GOOD. PT IS AWAITING PLACEMENT TO [facility]. NO EVENT THIS SHIFT AND NO VISITORS. PT IS IN BED, CALL LIGHT IN REACH, LOW POSITION.
--- NOTE | 2021-07-10 05:00 | NUR ---
SUPERVISOR DIAGNOSTIC SUMMARY PATIENT HADE A FAIR SHIFT. HIS VITALS WERE STABLE NO ISSUES OVERNIGHT. WILL CONTINUE TO MONITOR HIM.
--- NOTE | 2021-07-10 17:47 | NUR ---
61 Y MALE ADMITTED FOR ETOH W/DRAWL LIVER DISEASE. PT IS A&O, PLEASEANT AND COOPERATIVE WITH CARE. PT DOES HAVE AND "ROAD RASH" FROM FALLING ON GRAVEL ON BILAT KNEEW AND UPPER ABD/ STERNUM L CHEST AREA. D/C PLANNING IS PENDING PLACEMENT. DRSG CHANGED ON CHEST AND BILAT KNEES, PT TOLERATED WELL. NO OTHER CHANGES THIS SHIFT.
[2021-07-11 05:13] LABS: BASOPHILS PERCENT AUTO 2 % (0-2); EOSINOPHILS ABSOLUTE AUTO 0.18 K/mm3 (0.00-0.68); EOSINOPHILS PERCENT AUTO 3 % (0-6); Hematocrit 45.8 % (37.0-53.0); Hemoglobin 15.4 g/dL (13.5-17.5); IMMATURE GRAN ABSOLUTE AUTO 0.01 K/mm3 (0.00-0.10); IMMATURE GRAN PERCENT AUTO 0 % (0-1); LYMPHOCYTES ABSOLUTE AUTO 2.67 K/mm3 (0.84-5.20); LYMPHOCYTES PERCENT AUTO 44 % (21-46); MONOCYTES ABSOLUTE AUTO 0.88 K/mm3 (0.16-1.47); MONOCYTES PERCENT AUTO 15 % (4-13); Mean Corpuscular HGB 31.5 pg (26.0-34.0); Mean Corpuscular HGB Conc 33.6 g/dL (31.5-36.5); Mean Corpuscular Volume 94 fL (80-100); NEUTROPHILS ABSOLUTE AUTO 2.21 K/mm3 (1.96-9.15); NEUTROPHILS PERCENT AUTO 37 % (41-73); Platelet Count 134 K/mm3 (150-400); RDW Coefficient Variation 12.1 % (11.7-14.2); RDW Standard Deviation 42.1 fL (35.1-46.3); Red Blood Cell Count 4.89 M/mm3 (4.30-5.90); White Blood Cell Count 6.05 K/mm3 (4.00-11.30)
[2021-07-11 06:06] LABS: Anion Gap 9 mmol/L (6-16); Blood Urea Nitrogen 16 mg/dL (8-24); CO2, Blood 25 mmol/L (21-32); Calcium, Blood 9.3 mg/dL (8.5-10.1); Chloride, Blood 107 mmol/L (98-108); Creatinine, Blood 0.52 mg/dL (0.60-1.20); Glomerular Filtration Rate >60 (60-); Glucose, Blood 87 mg/dL (70-99); Potassium, Blood 3.9 mmol/L (3.5-5.5); Sodium, Blood 141 mmol/L (136-145)
--- NOTE | 2021-07-11 06:19 | NUR ---
SHIFT SUMMARY PT IS A 61 Y/O MALE, ADMITTED FOR ETOH WITHDRAWAL. HE IS A&O X 3, 1PA OUT OF BED AND USES A URINAL. NO C/O ACUTE PAIN, NAUSEA OR SOB. VITAL SIGNS STABLE. NO ACUTE CHANGES IN PT CONDITION NOTED DURING THE NIGHT. WILL CONTINUE TO MONITOR AND TREAT PER EMAR UNTIL HAND OFF TO DAY SHIFT RN.
--- NOTE | 2021-07-11 20:15 | NUR ---
END OF SHIFT SUMMARY: PATIENT DENIED PAIN OR DISCOMFORT THROUGHOUT THE SHIFT. PATIENT CALLS APPROPRIATELY. PATIENT DENIES NEEDS OTHER THAN HELP WITH GETTING TO DISCHARGE. PATIENT CALMLY WATCHED TV THROUGHOUT THE DAY.
--- NOTE | 2021-07-12 18:22 | NUR ---
SHIFT SUMMARY: NO ACUTE EVENTS. C/O HEADACHE THIS AFTERNOON; MEDICATED WITH TRAMADOL WITH COMPLETE RELIEF. GOOD APPETITE. HAD BM X 2 TODAY, TRACE AMOUNT BRIGHT RED BLOOD, PT STATED HE HAS "SOMETHING ON THE OUTSIDE" (HEMORRHOIDS?). GAIT IS QUITE UNSTEADY, USING FWW. AWAITING PLACEMENT.
--- NOTE | 2021-07-13 04:55 | NUR ---
PT RESTING IN BED WITH EYES CLOSED. PT RECENTLY MEDICATED WITH TRAMADOL PRN PER EMAR FOR C/O HEADACHE, WITH GOOD EFFECT. PT WAS MOSTLY PLEASANT AND COOPERATIVE DURING SHIFT. USING URINAL THROUGHOUT THE NIGHT WITH SIGNIFICANT URINE OUTPUT, >1L. DRESSINGS REMAIN CLEAN, DRY AND INTACT. BED ALARM IS ACTIVATED. BED IS IN LOW POSITION WITH THE CALL LIGHT WITHIN EASY REACH. WILL CONTINUE TO MONITOR.
[2021-07-13 05:00] LABS: BASOPHILS ABSOLUTE AUTO 0.08 K/mm3 (0.00-0.23); BASOPHILS PERCENT AUTO 2 % (0-2); EOSINOPHILS ABSOLUTE AUTO 0.19 K/mm3 (0.00-0.68); EOSINOPHILS PERCENT AUTO 4 % (0-6); Hematocrit 44.2 % (37.0-53.0); Hemoglobin 15.1 g/dL (13.5-17.5); IMMATURE GRAN PERCENT AUTO 0 % (0-1); LYMPHOCYTES ABSOLUTE AUTO 2.34 K/mm3 (0.84-5.20); LYMPHOCYTES PERCENT AUTO 43 % (21-46); MONOCYTES ABSOLUTE AUTO 0.86 K/mm3 (0.16-1.47); MONOCYTES PERCENT AUTO 16 % (4-13); Mean Corpuscular HGB 31.7 pg (26.0-34.0); Mean Corpuscular HGB Conc 34.2 g/dL (31.5-36.5); Mean Corpuscular Volume 93 fL (80-100); Mean Platelet Volume 10.1 fL (9.1-12.4); NEUTROPHILS ABSOLUTE AUTO 1.97 K/mm3 (1.96-9.15); NEUTROPHILS PERCENT AUTO 36 % (41-73); Platelet Count 122 K/mm3 (150-400); RDW Standard Deviation 41.4 fL (35.1-46.3); Red Blood Cell Count 4.76 M/mm3 (4.30-5.90); White Blood Cell Count 5.44 K/mm3 (4.00-11.30)
[2021-07-13 05:50] LABS: Alanine Aminotransfer (ALT/SGP 56 U/L (12-78); Albumin, Blood 2.7 g/dL (3.4-5.0); Albumin/Globulin Ratio 0.6 (0.8-1.8); Alk Phos 97 U/L (50-136); Anion Gap 10 mmol/L (6-16); Aspartate Aminotrans (AST/SGOT 46 U/L (12-37); Bilirubin, Total 0.7 mg/dL (0.1-1.0); Blood Urea Nitrogen 16 mg/dL (8-24); Bun/Creatinine Ratio 32.6 (12.0-20.0); CO2, Blood 25 mmol/L (21-32); Calcium, Blood 9.2 mg/dL (8.5-10.1); Chloride, Blood 107 mmol/L (98-108); Creatinine, Blood 0.49 mg/dL (0.60-1.20); Globulin, Blood 4.2 g/dL (2.2-4.0); Glomerular Filtration Rate >60 (60-); Glucose, Blood 92 mg/dL (70-99); Potassium, Blood 3.9 mmol/L (3.5-5.5); Sodium, Blood 142 mmol/L (136-145); Total Protein, Blood 6.9 g/dL (6.4-8.2)
--- NOTE | 2021-07-13 18:07 | NUR ---
SHIFT SUMMARY: NO ACUTE EVENTS. DENIED PAIN. ENCOURAGED PATIENT TO AMBULATE WITH FWW OFTEN TO IMPROVE STRENGTH, WHICH HE DID. DRESSINGS CHANGED ON KNEES AND ABDOMEN. USING URINAL INDEPENDENTLY. IN GOOD SPIRITS, AWAITING PLACEMENT.
--- NOTE | 2021-07-14 04:49 | NUR ---
SHIFT SUMMARY PT RESTED WELL THROUGHOUT THE SHIFT. CURRENTLY RESTING IN BED WITH HIS EYES CLOSED. PT C/O NECK PAIN/HEADACHE EARLIER IN THE SHIFT, MEDICATED PER EMAR WITH GOOD EFFECT. NO OTHER COMPLAINTS VOICED-INCLUDING ANY COMPLAINTS OF BRIGHT RED BLOOD IN STOOLS OR HEMORRHOIDS. PT REMAINS WITH SOME IMPULSIVITY- BED ALARM ACTIVATED. BED IS IN LOW POSITION WITH THE CALL LIGHT WITHIN EASY REACH. WILL CONTINUE TO MONITOR.
--- NOTE | 2021-07-14 18:17 | NUR ---
SHIFT SUMMARY PT IS STILL IMPULSIVE, BUT HAS GOTTEN BETTER ABOUT ABOUT CALLING FOR HELPO WHEN HE NEEDST O GO TO THE RESTROOM. ALL DRESSINGS WERE CHANGED TODAY. WOUNDS LOOK CLEAN AND ARE HEALING WELL. PT HAS HAD AN ISSUE WITH A SORE THROAT AND DR MAURY ALONZO FOR REDNESS AND IRRITATION FROM POST NASAL DRIP. WILL CONTINUE TO MONITOR.
--- NOTE | 2021-07-15 04:47 | NUR ---
SHIFT SUMMARY PT EXHIBITED PERIODS OF CONFUSION, AGITATION AND RESTLESS LAST NIGHT. REMAINS IMPULSIVE, JUMPING OUT BED, ATTEMPTING TO AMBULATE UNASSISTED. SOMEWHAT DIFFICAULT TO RE-DIRECT DUE TO BECOMING AGITATED. C/O HEADACHE/NECK PAIN ONCE DURING SHIFT, MEDICATED PER EMAR. PT ALSO C/O SORE THROAT DURING SHIFT, MEDICATED PER EMAR. NO C/O BRIGHT RED BLOOD IN STOOLS OR HEMORRHOIDS VOICED. BED ALARM ACTIVATED. BED IS IN LOW POSITION WITH THE CALL LIGHT WITHIN EASY REACH. WILL CONTINUE TO MONITOR.
[2021-07-15 11:10] LABS: BASOPHILS ABSOLUTE AUTO 0.08 K/mm3 (0.00-0.23); BASOPHILS PERCENT AUTO 1 % (0-2); EOSINOPHILS ABSOLUTE AUTO 0.11 K/mm3 (0.00-0.68); EOSINOPHILS PERCENT AUTO 2 % (0-6); Hematocrit 44.3 % (37.0-53.0); Hemoglobin 15.2 g/dL (13.5-17.5); IMMATURE GRAN PERCENT AUTO 0 % (0-1); LYMPHOCYTES ABSOLUTE AUTO 2.39 K/mm3 (0.84-5.20); LYMPHOCYTES PERCENT AUTO 42 % (21-46); MONOCYTES ABSOLUTE AUTO 0.89 K/mm3 (0.16-1.47); MONOCYTES PERCENT AUTO 16 % (4-13); Mean Corpuscular HGB 32.1 pg (26.0-34.0); Mean Corpuscular HGB Conc 34.3 g/dL (31.5-36.5); Mean Corpuscular Volume 94 fL (80-100); Mean Platelet Volume 10.1 fL (9.1-12.4); NEUTROPHILS ABSOLUTE AUTO 2.28 K/mm3 (1.96-9.15); NEUTROPHILS PERCENT AUTO 40 % (41-73); Platelet Count 141 K/mm3 (150-400); RDW Coefficient Variation 12.1 % (11.7-14.2); Red Blood Cell Count 4.73 M/mm3 (4.30-5.90); White Blood Cell Count 5.75 K/mm3 (4.00-11.30)
[2021-07-15 11:27] LABS: Anion Gap 10 mmol/L (6-16); Blood Urea Nitrogen 17 mg/dL (8-24); Bun/Creatinine Ratio 30.1 (12.0-20.0); CO2, Blood 23 mmol/L (21-32); Calcium, Blood 8.9 mg/dL (8.5-10.1); Chloride, Blood 109 mmol/L (98-108); Creatinine, Blood 0.56 mg/dL (0.60-1.20); Glomerular Filtration Rate >60 (60-); Glucose, Blood 122 mg/dL (70-99); Potassium, Blood 4.1 mmol/L (3.5-5.5); Sodium, Blood 142 mmol/L (136-145)
--- NOTE | 2021-07-15 16:48 | NUR ---
SHIFT SUMMARY NO ACUTE CHANGES WITH PT THIS SHIFT. HE DENIED A DRESSING CHANGE BECAUSE SEVERAL FELL OFF LAST NIGHT AND WERE CHANGED BY THE NIGHT NURSE. HE WAS ABLE TO EAT MORE TODAY AND SAYS HIS THROAT IS LESS SORE. STATED HE HAD BACK PAIN THIS AFTERNOON, MEDICATED PER MAR. MORE COOPERATIVE [facility] TODAY. WILL CONTINUE TO MONITOR.
--- NOTE | 2021-07-15 23:46 | NUR ---
AT ABOUT 2009, THE HOSPITALIST SHRIMP CLEANER, DR. WALKER WAS NOTIFIED THAT THE PT WAS HAVING MORE FREQUENT EPISODES OF AGITATION AND CONTINUED IMPULSIVENESS. NEW ORDERS RECEIVED.
--- NOTE | 2021-07-16 04:34 | NUR ---
SHIFT SUMMARY PT HAD EPISODES OF AGITATION AND RESTLESSNESS LAST NIGHT. DR. WALKER WAS NOTIFIED, NEW ORDERS RECEIVED AND CARRIED OUT WITH GOOD EFFECT. PT CURRENTLY RESTING IN BED WITH HIS EYES CLOSED. NO BM DURING SHIFT SO FAR. PT WAS UPDATED ON THE NEED FOR A STOOL SPECIMEN FOR GUAIAC TESTING, VERBALIZED HIS UNDERSTANDING BUT APPEARED CONFUSED REGARDING THE CONCEPT SHORTLY AFTER EXPLAINED; GLUE SPECIALTY SUPERVISOR ALSO MADE AWARE OF THE NEED OF A STOOL SPECIMEN. PT DENIED PAIN THIS SHIFT. BED ALARM REMAINS ACTIVATED WITH BED IN LOW POSITION WITH THE CALL LIGHT WITHIN EASY REACH. WILL CONTINUE TO MONITOR.
--- NOTE | 2021-07-16 17:19 | NUR ---
Shift Summary A/Ox3, intermittent confusion. Calls for assistance most of the time. Did try to turn bed alarm off, but this RN caught in time. Up to bathroom with gait and FWW. Had one medium soft brownish blood streaked bm, Dr. Leahy aware and occult guaiac sent to lab. Dressings to bilateral knees and L chest changed, wounds cleansed per order. Moderatly unsteady gait. Denies pain, nausea, vomiting. Appetite is good. No acute concerns. WCTM.
--- NOTE | 2021-07-17 04:46 | NUR ---
SHIFT SUMMARY PT STARTED OFF THE SHIFT VERY PLEASANT AND COOPERATIVE. BUT LATER IN THE NIGHT, HE BECAME VERY AGITATED AND RESTLESS. PT WAS DIFFICULT TO REDIRECT WHILE CONFUSED AND PARANOID. PT WAS VERY FRUSTRATED, IMPULSIVE AND DEFIANT. PT REFUSED TO HAVE FIXED INCOME PORTFOLIO MANAGER VITAL SIGNS TAKEN. STOOL GUAIAC RESULTS STILL PENDING. BED ALARM REMAINS ACTIVATED. BED IN LOW POSITION WITH THE CALL LIGHT WITHIN EASY REACH. WILL CONTINUE TO MONITOR.
[2021-07-17 07:32] LABS: Stool Occult Blood Guaiac 1 Pos (Neg)
--- NOTE | 2021-07-17 19:24 | NUR ---
PT A/O TERRELL ASSIST WITH GAIT BELT. PLEASANT AND COOPERATIVE WITH CARE TODAY. PT DID NOT HAVE BM TODAY. PT DENIED ABD PAIN OR ANY PAIN OF ANY SORT. VS WNL, NO SIGNS OF BLEEDING AT THIS TIME. WOUND CARE COMPLETED TO BILAT KNEES AND L SIDE ANTERIOR ABD PER ORDER. NO SIGNS OF INFECTION OR PURULENT DRAINAGE AT SITES. MINIMAL DRAINAGE NOTED. NO ACUTE CONCERNS THIS SHIFT.
--- NOTE | 2021-07-18 04:59 | NUR ---
A/OX3-4. AMS IMPROVING. USING SCDs DURING NOC SHIFT. USES URINAL OR SBA WITH FWW TO BR. PT HAS WOUNDS TO KNESS BILATERAL AND CHEST, ALL WITH DRESSING CDI. NO IV - MD AWARE. PT WILL BE PLACEMENT IN AFC. PT DID HAVE CONCERNS ABOUT A POSSIBLE HOLD/WARRANT IN [facility]. THE NURSE TOLD THE PT, THEY ARE UNABLE TO FIND THAT INFORMATION OUT, BUT WOULD PUT IN A BRIEF NOTE ABOUT THE CONVERSATION.
[2021-07-18 05:11] LABS: BASOPHILS ABSOLUTE AUTO 0.06 K/mm3 (0.00-0.23); BASOPHILS PERCENT AUTO 1 % (0-2); EOSINOPHILS ABSOLUTE AUTO 0.17 K/mm3 (0.00-0.68); EOSINOPHILS PERCENT AUTO 3 % (0-6); Hematocrit 43.8 % (37.0-53.0); IMMATURE GRAN ABSOLUTE AUTO 0.01 K/mm3 (0.00-0.10); IMMATURE GRAN PERCENT AUTO 0 % (0-1); LYMPHOCYTES ABSOLUTE AUTO 2.42 K/mm3 (0.84-5.20); LYMPHOCYTES PERCENT AUTO 43 % (21-46); MONOCYTES ABSOLUTE AUTO 0.77 K/mm3 (0.16-1.47); MONOCYTES PERCENT AUTO 14 % (4-13); Mean Corpuscular HGB 31.8 pg (26.0-34.0); Mean Corpuscular HGB Conc 34.2 g/dL (31.5-36.5); Mean Corpuscular Volume 93 fL (80-100); Mean Platelet Volume 10.8 fL (9.1-12.4); NEUTROPHILS ABSOLUTE AUTO 2.19 K/mm3 (1.96-9.15); NEUTROPHILS PERCENT AUTO 39 % (41-73); Platelet Count 120 K/mm3 (150-400); RDW Coefficient Variation 12.2 % (11.7-14.2); Red Blood Cell Count 4.71 M/mm3 (4.30-5.90); White Blood Cell Count 5.62 K/mm3 (4.00-11.30)
[2021-07-18 06:04] LABS: Anion Gap 8 mmol/L (6-16); Blood Urea Nitrogen 19 mg/dL (8-24); Bun/Creatinine Ratio 34.5 (12.0-20.0); CO2, Blood 24 mmol/L (21-32); Calcium, Blood 9.2 mg/dL (8.5-10.1); Chloride, Blood 111 mmol/L (98-108); Creatinine, Blood 0.55 mg/dL (0.60-1.20); Glomerular Filtration Rate >60 (60-); Glucose, Blood 95 mg/dL (70-99); Potassium, Blood 3.9 mmol/L (3.5-5.5); Sodium, Blood 143 mmol/L (136-145)
--- NOTE | 2021-07-18 18:31 | NUR ---
SHIFT SUMMARY; WOUND DRESSING CHANGE TO LEFT CHEST WALL AREA. SAID OK TO NOT USE ALGANATE ON WOUND IT APPEARS TO BE STICKING TO AREA AND KEEPING AREA RED. AREA WAS CLEANSED AND DRESSED WITH NONADHESIVE DRESSING USING HONEY DRESSING. WILL REMAIN AVAILABLE FOR THIS PAITNET UNTIL REPORT AT SHIFT CHANGE. FELIX VILLEGAS RN
--- NOTE | 2021-07-19 04:25 | NUR ---
SHIFT SUMMARY WOUND DRESSINGS CHANGED YESTERDAY. PT UP TO RESTROOM WITH WALKER. PT SLIGHTLY UNSTEADY ON HIS FEET BUT HE REFUSED ASSISTANCE. PT CONFUSED AT TIMES, BUT IS PLEASANT. PT NOT USING HIS CALL LIGHT AT TIMES AND HE YELLS OUT FOR ASSISTANCE. HE IS REDIRECTABLE THOUGH. CALL LIGHT WITHIN REACH. WILL CONTINUE TO MONITOR.
--- NOTE | 2021-07-19 17:17 | NUR ---
SHIFT SUMMARY; CAME TO ROOM HE ASSESSED PATIENTS WOUND ON HIS LEFT CHEST WALL AND BILATERAL KNEES. ORDER TO LEAVE THEM OPEN TO AIR FOR MOST OF DAY AND ONLY COVER IF PATIENT IS SLEEPING OR WEARING CLOTHING THAT WOULD RUB ON THEM. PATIENT WAS UP AND DOWN DURING DAY AMBULATING WITH WALKER TO BATHROOM AND BACK. HE IS STILL UNSTEADY ON HIS FEET HOWEVER REFUSES ASSISTANCE. BED ALARM REMAINS IN PLACE. FELIX VILLEGAS RN
--- NOTE | 2021-07-20 04:02 | NUR ---
SHIFT SUMMARY PT HAS SLEPT MOST OF THE SHIFT. PT DID COMPLAIN OF A SEVERE [place] EARLIER IN THE SHIFT, MEDICATED WITH TYLENOL WITH EFFECT. PT MOSTLY INDEPENDENT IN THE ROOM AND MAKES NEEDS KNOWN. ASSESSMENT REMAINS UNCHANGED. BED IN LOWEST POSITION, CALL LIGHT WITHIN REACH.
[2021-07-20 06:02] LABS: Hematocrit 44.6 % (37.0-53.0); Hemoglobin 15.2 g/dL (13.5-17.5); Mean Corpuscular HGB 31.5 pg (26.0-34.0); Mean Corpuscular HGB Conc 34.1 g/dL (31.5-36.5); Mean Corpuscular Volume 92 fL (80-100); Platelet Count 132 K/mm3 (150-400); RDW Coefficient Variation 12.1 % (11.7-14.2); RDW Standard Deviation 41.5 fL (35.1-46.3); Red Blood Cell Count 4.83 M/mm3 (4.30-5.90); White Blood Cell Count 5.92 K/mm3 (4.00-11.30)
--- NOTE | 2021-07-20 17:23 | NUR ---
SUMMARY PT SITTING UP IN BED WATCHING TV, PT HAS BEEN COOPERATIVE WITH CARE T/O THE DAY, IMPULSIVE AT TIMES AND FORGETS TO USE THE CALL LIGHT, UP WITH 1P ASSIST WITH THE WALKER, GAIT IS SHAKY AND UNSTEADY, DRESSINGS TO THE KNEES AND CHEST HAVE BEEN CHANGED TODAY, PT DECLINED THE USE OF THE MEDICINAL HONEY, STATING "I HEARD THAT STUFF ISN'T GOOD", VSS, NO COMPLAINTS, WILL CONT TO MONITOR
--- NOTE | 2021-07-21 06:32 | NUR ---
SHIFT SUMMARY: PATIENT REPORTED NECK PAIN AT START OF SHIFT. TYLENOL WAS GIVEN WITH GOOD EFFECT. VSS, VOIDING INDEPENDANTLY IN THE URINAL. PATIENT IS ORIENTED TO PERSON AND PLACE AND COOPERATIVE WITH CARE.
--- NOTE | 2021-07-21 17:08 | NUR ---
PT CLEARED TO AMBULATE IN ROOM WITH FWW TODAY UNASSISTED. HE IS QUITE HAPPY ABOUT THIS. WALKS TOES OUT BUT STATES WALKS THIS WAY R/T TBI ACCIDENT SOME TIME AGO. NO OTHER CONCERNS NOTED. BED IN LOW POSITOIN, CALL LITE IN REACH, CALLS APPROP
--- NOTE | 2021-07-22 06:35 | NUR ---
SHIFT SUMMARY: PATIENT IS A&O TO SELF AND PLACE. VSS, NO REPORTS OF PAIN. USING THE URINAL INDEPENDANTLY. PLEASANT AND COOPERATIVE WITH STAFF.
--- NOTE | 2021-07-22 18:35 | NUR ---
PT HAS BEEN QUITE PLEASAANT TODAY . NO C/O PAIN TODAY. DID AMBULATE TO BATHTROOM TODAY. NO NEW CONCERNS NOTED. PT FEELING BETTER WITH FREEDOM TO WALK TO BATHROOM INDEPENDANTLY. BED IN LOW POSITION, CALL LITE IN REACH CALLS APROP
--- NOTE | 2021-07-23 06:20 | NUR ---
SHIFT SUMMARY: PATIENT IS ALERT AND ORIENTED TO SELF AND PLACE. NO COMPLAINTS OF PAIN OR DISCOMFORT. ATE 100% OF SNACK. VOIDING IN THE URINAL INDEPENDANTLY AND AMBULATES IN THE ROOM INDEPEDANTLY AND IS COMPLIANT WITH THE WALKER.
--- NOTE | 2021-07-23 07:24 | NUR ---
ASSUMED CARE: PT RESTING QUIETLY AT THIS TIME. NO ACUTE NEEDS OR CONCERNS.
--- NOTE | 2021-07-23 17:44 | NUR ---
SHIFT SUMMARY: PT HAS BEEN INDEPENDENT IN ROOM WITH WALKER. DRESSINGS CHANGED TO BILATERAL KNEES AND CHEST. PT ONLY WANTED MEPILEX CHANGED, DECLINED ON MEDIHONEY. AWAITING PLACEMENT. NO FURTHER NEEDS OR CONCERNS AT THIS TIME.
--- NOTE | 2021-07-24 05:35 | NUR ---
SHIFT SUMMARY A/O, ABLE TO MAKE NEEDS KNOWN. COOPERATIVE WITH CARE. ANSWERS QUESTIONS APPROPRIATELY. NO C/O PAIN/DISCOMFORT. DRSGS REMAIN CLEAN AND INTACT. APPEARED TO REST MUCH OF THE NIGHT. UP INDEPENDENTLY /c FWW. STEADY GAIT NOTED. VSS/AFEBRILE. BED REMAINED IN LOWEST POSITION. CALL LIGHT AND BELONGINGS WITHIN REACH. NO ACUTE CHANGES NOTED. REPORT TO ONCOMING RN.
--- NOTE | 2021-07-24 07:13 | NUR ---
ASSUMED CARE: PT AWAKE, WALKING AROUND ROOM WITH WALKER. NO ACUTE NEEDS AT THIS TIME.
--- NOTE | 2021-07-24 18:15 | NUR ---
SHIFT SUMMARY: PT HAS BEEN INDEPENDENT IN ROOM THIS SHIFT. PLEASANT AND COOPERATIVE. AWAITING DISCHARGE PLANS. NO ACUTE NEEDS OR CONCERNS AT THIS TIME.
--- NOTE | 2021-07-25 04:23 | NUR ---
SHIFT SUMMARY ALERT, ABLE TO MAKE NEEDS KNOWN. MOSTLY COOPERATIVE WITH CARE. BECAME IRRITABLE AFTER HIS TRIP BACK FROM THE BATHROOM AROUND 2200. COOPERATIVE AND THANNKFUL. APPEARED TO REST T/O SHIFT. DRSG TO R KNEE ADRESSED EXPLAINED THAT IT APPEARED THE DRSG SHOULD BE CHANGED. REFUSED AT THAT TIME. ALL OTHER DRSGS C/D/I. UP INDEPENDENTLY ROOM /C STIFF GAIT. NO ACUTE CHANGES NOTED. BED REMAINS IN LOWEST POSITION. CALL LIGHT AND BELONGINGS WITHIN REACH. REPORT TO ONCOMING RN.
--- NOTE | 2021-07-25 17:33 | NUR ---
SHIFT SUMMARY NO ACUTE CHANGES NOTED TO PT THIS SHIFT. PT IS AAOX3, UNABLE TO TELL DATE. ABLE TO MAKE NEEDS KNOWN, PLEASANT AND COOPERATIVE TO CARE. NO C/O PAIN OR ANY DISCOMFORT. PT REFUSED WOUND CARE THIS SHIFT TO VERO KNEES AND CHEST AREAS. DRESSING TO AA INTACT. PT IS IND IN ROOM, USES FWW WHEN AMBULATING. CALL LIGHT WITHIN REACH.
--- NOTE | 2021-07-26 04:31 | NUR ---
SHIFT SUMMARY: AOX2, FORGETFUL. INDPENDENT WITH WALKER, UNSTEADY AT TIMES BUT CLEARED BY PT. MILD TREMORS STILL PRESENT. VS WNL, AFEBRILE. REFUSED TO HAVE DRESSINGS TO HIS WOUNDS CHANGES THEY WERE JUST CHANGED DAY PRIOR. SLEPT WELL T/O SHIFT. NO ACUTE CHANGES TO REPORT. CALL LIGHT IN REACH.
--- NOTE | 2021-07-26 17:10 | NUR ---
SHIFT SUMMARY PT IS AAO TO SELF AND SITUATION, FORGETFUL AT TIMES. PLEASANT AND COOPERATIVE TO CARE. NO C/O PAIN OR ANY DISCOMFORT THIS SHIFT. PT CONTINUES TO REFUSE WOUND DRESSING CHANGES. EDUCATED PT ON IMPORTANCE OF WOUND CARE. PT IS IND IN THE ROOM, ABLE TO AMBULATED WITH A FWW. CALL LIGHT WITHIN REACH.
--- NOTE | 2021-07-27 04:20 | NUR ---
SHIFT SUMMARY ASSUMED CARE AT 1900. PT REMAINS AAOX2, WITH PERIODS OF CONFUSION AND FORGETFULNESS. PT PLEASANT AND COOPERATIVE THROUGHOUT SHIFT THUS FAR, NO EPISODES OF AGITATION NOTED. PT ABLE TO VOICE HIS NEEDS. PT C/O POSTERIOR NECK PAIN ONCE DURING SHIFT, MEDICATED PRN PER EMAR WITH GOOD EFFECT. PT REFUSED DRESSING CHANGES LAST NIGHT. PT OOB OCCASIONALLY, AMBULATING WITH ROLLING WALKER. BED REMAINS IN LOW POSITION WITH THE CALL LIGHT WITHIN EASY REACH. WILL CONTINUE TO MONITOR.
--- NOTE | 2021-07-27 19:09 | NUR ---
SHIFT SUMMARY PATIENT IS ALERT AND ORIENTED X3, PLEASANT AND COOPERATIVE WITH CARE. PATIENT HAS SOME CONFUSION. INDEPENDENT TO BATHRROM. ON RA. NO TELE. PAS BILATERAL SCDS APPLIED THIS SHIFT. MEDICATED PER THE EMAR ONCE THIS SHIFT FOR PAIN. THROAT LOZENGES GIVEN FOR SORE THROAT PRN PER THE MAR. NO ACUTE CHANGES. VSS. CALL LIGHT WITHIN REACH.
--- NOTE | 2021-07-28 05:53 | NUR ---
SHIFT SUMMARY ASSUMED CARE AT 1900. NO ACUTE EVENTS OVERNIGHT. PT AAOX2-3, WITH PERIODS OF FORGETFULNESS AND CONFUSION BUT EASILY RE-ORIENTED AND RE-DIRECTED. PT IS ABLE TO VOICE HIS NEEDS. DENIED PAIN AND NO COMPLAINTS WERE VOICED. SCHEDULED MEDICATIONS ADMINISTERED ORDERED. FOAM DRESSINGS TO LEFT CHEST AND BILATERAL KNEES REMAIN INTACT. BED IS IN LOW POSITION WITH THE CALL LIGHT WITHIN EASY REACHM ALTHOUGH PT PREFERS TO INDEPENDENTLY AMBULATE USING ROLLING WALKER TO THE DOORWAY TO ASK QUESTIONS. CONTINUE TO MONITOR.
--- NOTE | 2021-07-28 16:31 | NUR ---
SHIFT SUMMARY PT IS AOX3-4 AND COOPERATIVE WITH CARE. PT DENIES PAIN, N/V, SOB. PT APPETITE IS GOOD. DRESSING TO LEFT CHEST C/D/I. PT IS INDEPENDENT IN ROOM. PT PENDING PLACEMENT. PT IS IN BED, CALL LIGHT IN REACH, LOW POSITION.
--- NOTE | 2021-07-29 06:59 | NUR ---
SHIFT SUMMARY ASSUMED CARE AT 1900. NO ACUTE EVENTS OVERNIGHT. REMAINS AAOX2-3 WITH PERIODS OF FORGETFULNESS/CONFUSION BUT EASILY REORIENTED. NO COMPLAINTS VOICED. DENIED PAIN. VITAL SIGNS STABLE. SCHEDULED MEDICATIONS ADMINISTERED. BED IN LOW POSITION WITH THE CALL LIGHT WITHIN EASY REACH.
--- NOTE | 2021-07-29 16:07 | NUR ---
SHIFT SUMMARY PT IS AOX2-3 AND PLEASANT. PT MEDICATED X1 FOR NECK PAIN. PT DENIES N/V, SOB. PT APPETITE IS GOOD. PT REMAINS INDEPENDENT IN ROOM. LEFT CHEST WOUND DRESSING CHANGED THIS SHIFT. BL KNEE DRESSINGS C/D/I. PT DID NOT HAVE VISITORS THIS SHIFT. PLAN IS FOR PLACEMENT. PT IS IN BED, CALL LIGHT IN REACH, LOW POSITION.
--- NOTE | 2021-07-30 06:44 | NUR ---
SHIFT SUMMARY ASSUMED CARE AT 1900. NO ACUTE EVENTS OVERNIGHT. PT RESTED WELL. NO COMPLAINTS VOICED. SCHEDULED MEDICATIONS ADMINISTERED. PT STATED LAST BM WAS 07/29/21. PT VITAL SIGNS REMAINED WNL. AMBULATES WITH ROLLING WALKER INDEPENDENTLY IN HIS ROOM. BED IS IN LOW POSITION WITH THE CALL LIGHT WITHIN EASY REACH. WILL CONTINUE TO MONITOR.
--- NOTE | 2021-07-30 17:36 | NUR ---
SHIFT SUMMARY: NO ACUTE EVENTS. A&O X 2, PLEASANT. AMBULATED IN HALLWAY TO ELEVATORS WITH FWW AND SBA, GAIT IMPAIRED AND ATAXIC; C/O PAIN R HIP AFTER COMPLETION OF WALK WHICH RESOLVED WITHOUT INTERVENTION. C/O HEADACHE AND NECK PAIN; MEDICATED PER EMAR WITH ADEQUATE RELIEF. DRESSINGS CHANGED ON L CHEST/ABD AND BILATERAL KNEE ABRASIONS. UP INDEPENDENTLY IN ROOM, ENCOURAGED AMBULATION WITH FWW.
--- NOTE | 2021-07-31 06:21 | NUR ---
SHIFT SUMMARY ASSUMED CARE AT 1900. NO ACUTE EVENTS OVERNIGHT. NO COMPLAINTS VOICED. SCHEDULED MEDICATIONS ADMINISTERED. DRESSING TO LEFT CHEST AMD BILATERAL KNEES INTACT. VITAL SIGNS WNL. BED IN LOW POSITION WITH THE CALL LIGHT WITHIN EASY REACH. WILL CONTINUE TO MONITOR.
--- NOTE | 2021-07-31 17:50 | NUR ---
SHIFT SUMMARY: NO ACUTE EVENTS. PATIENT WAS ANGRY AND SULLEN THIS MORNING, HAD A BAD NIGHT LAST NIGHT, DEMEANOR IMPROVED THROUGHOUT THE DAY. AMBULATING INDEPENDENTLY IN HALLWAY WITH FWW, GAIT IS ATAXIC BUT HE MANAGES FINE. INDEPENDENT IN ROOM. C/O CHRONIC PAIN IN BACK AND NECK; MEDICATED PER EMAR WITH ADEQUATE RELIEF. USING URINAL/BR. AWAITING PLACEMENT.
--- NOTE | 2021-08-01 05:04 | NUR ---
PATIENT WAS ALERT AND ORIENTED X3, STABLE VITAL SIGNS, NO ACUTE CHANGES. PATIENT COMPALINED OF PAIN AND WAS TREATED WITH TRAMADOL. CALL LIGHT WITHIN REACH, BED DOWN TO THE LOWEST POSITION. PATIENT AWAITING ADULT FOSTER HOME. WILL CONTINUE TO MONITOR UNTILL HAND OFF.
--- NOTE | 2021-08-01 16:32 | NUR ---
SHIFT SUMMARY; THIS RN MAKES CALL TO TRINI LUI TO CHECK ON STATUS OF PATIENT GOING [facility]. STATE OFFICE IS CLOSED DUE TO WEATHER TODAY. MESSAGE LEFT FOR MANSOOR ON HER SECURE VOICEMAIL. UPDATED KIRSTIN KELLEY RNROTARY FURNACE TENDER FOR PROGRESS. FELIX VILLEGAS RN MEDICAL FLOOR.
--- NOTE | 2021-08-02 06:14 | NUR ---
PATIENT WAS ALERT AND ORIENTED X3, STABLE VITAL SIGNS, NO ACUTE CHANGES, PATIENT DENIED ANY PAIN. PATIENT WALKED AROUND WITH HIS WALKER BEFORE GOING BACK TO BED. CALL LIGHT WITH IN REACH, BED TO THE LOWEST POSITION, WILL CONTINUE TO MONITOT UNTIL HAND OFF.
--- NOTE | 2021-08-02 17:28 | NUR ---
SHIFT SUMMARY; PATIENT WAS INCONTINENT OF STOOL TODAY. PER PATIENT HE DOES NOT WANT ANYMORE PROBIOTICS. PATIENT UP TO HALLWAY X 3 TODAY. AMBULATING USING FWW WITHOUT DIFFICULTY. PATIENT IS AO X 3. COMPLAINS OF SEVERE NECK PAIN AND APPEARS TO HAVE DIFFICULTY TURNING HEAD AND BENDING AT HIPS. WILL PASS ON IN SHIFT REPORT TO LET MD KNOW IN AM. FELIX VILLEGAS RN
--- NOTE | 2021-08-03 04:55 | NUR ---
PATIENT WAS ALERT AND ORIENTED X3, STABLE VITALS, NO ACUTE CHANGES. PATIENT DEINED ANY PAIN. RE-DRESSING WOUND ON ABDOMINE. PATIENT WALKED WITH HIS WALKER AROUND HIS ROOM FOR EXCERCISE BEFORE GO TO BED. CALL LIGHT WITHIN REACH AND BED DOWN TO THE LOWEST POSTION. WILL CONTINUE TO MONITOR UNTILL HAND OFF.
--- NOTE | 2021-08-03 16:44 | NUR ---
SHIFT SUMMARY PATIENT COMPLAINED OF NECK PAIN, LIDOCAINE PATCH APPLIED. PATIENT DENIES NAUSEA AND SHORTNESS OF BREATH. BANDAGES CHANGED ON CHEST AND BOTH KNEES. PATIENT IS INDEPENDENT IN ROOM. PATIENT IS EATING AND DRINKING WELL. PATIENT WALKED IN HALLWAY WITH SUPERVISION. PATIENT IS PLEASANT AND COOPERATIVE WITH CARE.
--- NOTE | 2021-08-04 04:54 | NUR ---
PATIENT WAS ALERT AND ORIENTED X3, STABLE VITAL SIGNS, NO ACYTE CHANGES. PATIENT WALKED IN THE JESUS WAY WITH HIS WALKER BEFORE GOING TO BED. PATIENT COMPLAINED OF PAIN AND WAS GIVEN TYLENOL. CALL LIGHT WITH IN REACH AND BED DOWN TO THE LOWEST POSTION. WILL CONTINUE TO MONITOR UNTILL HAND OFF.
--- NOTE | 2021-08-04 17:18 | NUR ---
SHIFT SUMMARY PATIENT DENIES PAIN, NAUSEA, AND SHORTNESS OF BREATH. PATIENT IS INDEPENDENT IN HIS ROOM. PATIENT AMBULATED IN HALLWAY WITH SBA MULTIPLE TIMES TODAY. PATIENT CALLS APPROPRIATELY AND FOLLOWS DIRECTIONS WELL. PATIENT IS EATING AND DRINKING WELL. PATIENT IS PLEASANT AND COOPERATIVE WITH CARE.
--- NOTE | 2021-08-05 05:23 | NUR ---
PATIENT WAS ALERT AND ORIENTED X3, STABLE VITAL SIGNS, NO ACUTE CHANGES. PATIENT WALKED AROUND WITH HIS WALKER FOR A BIT BEFORE GOING TO BED. PATIENT DENIED ANY PAIN. CALL LIGHT WITH IN REACH AND BED DOWN TO THE LOWEST POSITION. WILL CONTINUE TO MONITOR UNTIL HAND OFF.
--- NOTE | 2021-08-05 16:43 | NUR ---
SHIFT SUMMARY PT AxOx3-4 WITH INTERMITTENT CONFUSION. PT HAS BEEN PLEASANT AND COOPERATIVE WITH CARE. REPORTED PAIN THIS AM, MEDICATED PER EMAR WITH REPORTED RELIEF. PT HAD SHOWER TODAY AND WOUND CARE/BANDAGES REPLACED ON VERO KNEES AND LLQ ABDOMEN. PT HAD QUESTIONS ABOUT DISCHARGE. BLENDING TANK TENDER OUT TODAY. WILL RELAY REQUESTS TO ONCOMING SHIFT. PT ALSO REQUESTED TO DECREASE VITALS SCHEDULE. PT CURRENTLY RESTING IN BED WATCHING TV WITH CALL LIGHT IN REACH. DENIES ANY FURTHER NEEDS AT THIS TIME.
--- NOTE | 2021-08-06 04:50 | NUR ---
SHIFT SUMMARY PT AOX2-3 AND COOPERATIVE WITH CARE THIS SHIFT. PT AMBULATED IN THE HALLWAY WITH WALKER TO HELP STRETCH LEGS. PT C/O OF SORE THROAT AND MEDICATED PER EMAR, WHICH WAS EFFECTIVE. PT RESTED SOME THIS SHIFT AND CURRENTLY ASLEEP SNORING LOUDLY. THIS NURSE WILL CONTINUE TO MONITOR UNTIL REPORT IS GIVEN.
--- NOTE | 2021-08-06 17:43 | NUR ---
SHIFT SUMMARY PT AXO X4, PLEASANT AND COOPERATIVE WITH CARE. NO CHANGES THIS SHIFT. PT UP AD PARISA WITH ATAXIC GAIT AND FWW. NO ACUTE CHANGES THIS SHIFT. DRESSING TO ABDOMEN CHANGED THIS SHIFT. THERAPEUTIC COMMINICATION AND ACTIVE LISTENING UTILIZED AND THIS NURSE SAT AND LISTENED PATIENT DISCUSS HIS PAST AND FUTURE. BED IN LOW POSITION, CALL LIGHT WITHIN REACH. NO IV IN PLACE.
--- NOTE | 2021-08-07 04:49 | NUR ---
SHIFT SUMMARY PT AOX2-3 AT TIMES AND HAS SOME EPISODES OF CONFUSION THROUGHOUT THE NIGHT BUT EASY TO REDIRECT. PT WONDERED INTO JESUS IN THE MIDDLE OF THIS SHIFT CONFUSED BUT REDIRECTED WELL. PT RESTED MOST OF THIS SHIFT WITH LOUD SNORING HEARD UPON ROUNDS. PT CURRENTLY IN BED WATCHING TV AND DENIES ANY NEEDS AT THE MOMENT. PT MEDICATED PER EMAR THIS SHIFT AND TOLERATED MEDS WELL, DRESSINGS CDI. THIS NURSE WILL CONTINUE TO MONITOR UNTIL REPORT IS GIVEN.
--- NOTE | 2021-08-07 11:11 | NUR ---
PATIENT EXPRESSED CONCERNS ABOUT A SORE THROAT TO THIS NURSE PRIOR TO THIS NOTE. PT STATES THAT HE "NEEDS ANTIBIOTICS." HE STATED THAT HE IS "VERY FAMILIAR WITH THESE SYMPTOMS AND TREATMENT" AND THAT CEPACOL DROPS "WON'T HELP" BUT WAS OPEN TO TRYING THEM TO EASE SYMPTOMS. THIS NURSE OFFERED WARM BEVERAGE WELL. PT STATED THAT THERE IS "NO WAY I'M GOING TO TAKE A SHOWER LIKE THIS TODAY." THIS NURSE TOLD PATIENT THAT IT'S OKAY IF HE DOESN'T WANT TO TAKE A SHOWER. THIS NURSE WILL NOTIFIY DR. LANZA PER PATIENT REQUEST. BED IN LOW POSITION, CALL LIGHT WITHIN REACH. PT MEDICATED PER EMAR FOR SORE THROAT.
--- NOTE | 2021-08-07 17:39 | NUR ---
SHIFT SUMMARY PT AXO X4. VSS. SEE PRIOR NOTE THIS SHIFT. NO OTHER CHANGES THIS SHIFT. PT DENIES PAIN, SOB AND N/V. UP AD PARISA WITH ATAXIC GAIT WITH FWW THOUGH THIS NURSE ATTEMPTS TO BE SBA WITH AMBULATION FOR SAFETY. PT'S HAIR BRAIED BY THIS NURSE PER PT REQUEST. BED IN LOW POSITION, CALL LIGHT WITHIN REACH.
--- NOTE | 2021-08-08 05:00 | NUR ---
SHIFT SUMMARY PT AOX3 AT TIMES WITH SOME CONFUSION AT HS THIS SHIFT. PT EAST TO REDIRECT AND STANDBY ASSIST BUT MOSTLY INDEPENDENT WITH WALKER. PT RESTED WELL THIS SHIFT AND HAD A RISE/FALL OF CHEST UPON ROUNDS. PT CURRENTLY UP WATCHING TV AND DENIES ANY NEEDS AT THE MOMENT. THIS NURSE WILL CONTINUE TO MONITOR UNTIL REPORT IS GIVEN.
--- NOTE | 2021-08-08 17:38 | NUR ---
SHIFT SUMMARY PATIENT PLEASANT AND COOPERATIVE WITH CARE. PATIENT INDEPENDENT IN ROOM WITH USE OF WALKER. PATIENT TOOK MULTIPLE WALKS OUT IN HALLWAY T/O SHIFT. DRESSING CHANGE AND WOUND CARE DONE ON BILATERAL KNEE WOUNDS AND ABDOMINAL WOUND. NO SIGNIFICANT EVENTS T/O SHIFT. WILL CONTINUE TO MONITOR.
--- NOTE | 2021-08-09 04:31 | NUR ---
SHIFT SUMMARY PT AOX3 AT TIMES WITH SOME CONFUSION AT HS THIS SHIFT. PT C/O BACK PAIN AND A [place], BUT MEDICATED PER EMAR. MEDICATION WAS EFFECTIVE AND PT RESTED WELL WITH SNORING HEARD UPON ROUNDS, NO S/S OF DISTRESS. PT STILL ASLEEP AND THIS NURSE WILL CONTINUE TO MONITOR UNTIL REPORT IS GIVEN.
--- NOTE | 2021-08-09 17:24 | NUR ---
NO ACUTE CHANGES. PT AOX4 AND COOPERATIVE OF CARE WILL. PT AMBULATES WITH WALKER OUT IN JESUS. NO DISTRESS NOTED AND CALL LIGHT WITHIN REACH.
--- NOTE | 2021-08-10 06:20 | NUR ---
SHIFT SUMMARY PT AOX2-3 AT TIMES AND C/O PAIN IN NECK/BACK THIS SHIFT. PT MEDICATED PER EMAR AND RESTED WELL WITHOUT S/S OF DISTRESS. PT CURRENTLY IN BED WATCHING TV AND DENIES ANY NEEDS AT THE MOMENT. THIS NURSE WILL CONTINUE TO MONITOR UNTIL REPORT IS GIVEN.
--- NOTE | 2021-08-10 16:55 | NUR ---
NO ACUTE CHANGES. PT INDEPENDENT WITH WALKER AND AO AND PLEASANT WITH CARE. PT IS CONTENT AND LETS ALL HIS NEEDS KNOWN. NO DISTRESS NOTED AT THIS TIME AND CALL LIGHT WITHIN REACH.
--- NOTE | 2021-08-11 06:42 | NUR ---
no changes noted for Valente overnight. He wanted his abdominal dressing changed, then he said he was going to take a shower this morning. so This RN talked him into replacing it after.
--- NOTE | 2021-08-11 18:04 | NUR ---
SHIFT SUMMARY PATIENT IS ALERT AND ORIENTED X3, PLEASANT AND COOPERATIVE WITH CARE. DRESSING CHANGES WERE DONE THIS SHIFT. PATIENT DECLINED A SHOWER. PATIENT SPOKE TO A FACILITY ON THE PHONE THIS SHIFT REGARDING PLACEMENT. NO ACUTE CHANGES. VSS. THIS NURSE WILL CONTINUE TO CARE FOR THE PATIENT UNTIL SHIFT REPORT IS GIVEN TO ONCOMING NURSE.
--- NOTE | 2021-08-12 05:41 | NUR ---
CHRISTY WAS RESTLESS LAST NIGHT. AFTER A CONVERSATION HE AND THIS RN SHARED REGARDING HIS PLACEMENT, IT WAS CLEAR THAT HE WAS VERY WORRIED ABOUT GOING TO ALCOHOL REHAB. CHRISTY HAD NO COMPLAINTS OF DISCOMFORT OTHER THAN HIS CHRONIC NECK PAIN WHICH WAS TREATED WITH TRAMADOL FROM HIS EMAR. THIS MORNING, THE PATIENT WAS FINALLY SLEEPING. 0600 PROTONIX HELD TO ALLOW THE PATIENT TO GET SOME SLEEP. ONCOMING RN TO BE INFORMED
[2021-08-12 05:55] LABS: Hematocrit 43.9 % (37.0-53.0); Hemoglobin 14.8 g/dL (13.5-17.5); Mean Corpuscular HGB 31.2 pg (26.0-34.0); Mean Corpuscular HGB Conc 33.7 g/dL (31.5-36.5); Mean Corpuscular Volume 92 fL (80-100); Mean Platelet Volume 10.9 fL (9.1-12.4); Platelet Count 112 K/mm3 (150-400); RDW Coefficient Variation 12.4 % (11.7-14.2); RDW Standard Deviation 42.7 fL (35.1-46.3); Red Blood Cell Count 4.75 M/mm3 (4.30-5.90); White Blood Cell Count 5.22 K/mm3 (4.00-11.30)
[2021-08-12 06:49] LABS: Anion Gap 8 mmol/L (6-16); Blood Urea Nitrogen 20 mg/dL (8-24); Bun/Creatinine Ratio 32.2 (12.0-20.0); CO2, Blood 26 mmol/L (21-32); Calcium, Blood 9.5 mg/dL (8.5-10.1); Chloride, Blood 107 mmol/L (98-108); Creatinine, Blood 0.62 mg/dL (0.60-1.20); Glomerular Filtration Rate >60 (60-); Glucose, Blood 87 mg/dL (70-99); Potassium, Blood 3.7 mmol/L (3.5-5.5); Sodium, Blood 141 mmol/L (136-145)
--- NOTE | 2021-08-12 17:35 | NUR ---
SHIFT SUMMARY NO ACUTE CHANGES THIS SHIFT. PATIENT HAS BEEN UP WALKING AROUND THIS SHIFT. THE PATIENT GOT A SHOWER. NEW MEPILIX APPLIED. WILL CONTINUE TO CARE FOR THE PATIENT UNTIL SHIFT REPORT IS GIVEN TO ONCOMING NURSE.
--- NOTE | 2021-08-13 04:31 | NUR ---
SHIFT SUMMARY PATIENT HAD NO ACUTE CHANGES OBSERVED. AXOX 3 AND INDEPENDENT IN THE ROOM W/FWW. WALKS OUT TO ROOM DOOR/HALLWAY MULTIPLE TIMES AND BACK IN ROOM. NO IV ACCESS. TAKES MEDICATION WHOLE WITH WATER. VSS/AFEBRILE. DENIES PAIN, SOB, AND N/V. NO IV ACCESS. CALL LIGHT IN REACH. BED IN LOWEST POSITION. WILL CONTINUE TO MONITOR UNTIL DAY SHIFT NURSE ASSUMES CARE.
--- NOTE | 2021-08-13 17:07 | NUR ---
SHIFT SUMMARY NO ACUTE CHANGES THIS SHIFT. WOUND CARE WAS PREFORMED AND PT WAS ABLE TO KEEP HIS LODOCAINE PATCH ON THE WHOLE DAY. PT IS EXPECTED TO TRANSFER TO ALCOHOL REHAB SOMETIME NEXT WEEK. WILL CONTINUE TO MONITOR.
--- NOTE | 2021-08-14 04:10 | NUR ---
SHIFT SUMMARY PATIENT HAD NO ACUTE CHANGES OBSERVED. LIDOCAINE PATCH REMOVED FROM NECK PER EMAR. AXOX 3 AND INDEPENDENT IN ROOM W/FWW. NO IV ACCESS. VSS/AFEBRILE. DENIES PAIN, SOB, AND N/V. COOPERATIVE WITH CARE. CALL LIGHT IN REACH. BED IN LOWEST POSITION. WILL CONTINUE TO MONITOR UNTIL DAY SHIFT NURSE ASSUMES CARE.
--- NOTE | 2021-08-14 14:52 | NUR ---
PT SHOWERED AT 1400. LIDOCAINE PATCH FELL OFF, WAS REPLACED WITH A NEW ONE. WOUND CARE PERFORMED PER MD ORDERS - CALCIUM ALGINATE TO ABD WOUND, COVERED WITH FOAM DRESSING. MEDIHONEY TO BILAT KNEE WOUNDS, COVERED WITH FOAM DRESSING. PT TOLERATED PROCEDURE WELL.
--- NOTE | 2021-08-14 16:28 | NUR ---
SHIFT SUMMARY MYRIAM IS AMBULATING IN THE HALLWAYS INDEPENDENTLY WITH A FWW. HE DISCUSSES HIS PLAN "HEADING TO ANOTHER STATE FOR DRUG AND ALCOHOL REHAB." CARE MANAGEMENT WORKING ON PLACEMENT IN [facility]ULT [facility]. PT SHOWERED TODAY, RN REPLACED LIDOCAINE PATCH WITH A NEW ONE BECAUSE THE LIDOCAINE PATCH WAS NOT ABLE TO ADHERE AFTER THE SHOWER. RN PERFORMED WOUND CARE, PER MD ORDER, WHICH PT TOLERATED WELL. PT IS CALM, CO-OPERATIVE WITH CARE. ROOM AIR. NO IV ACCESS. WILL CONTINUE TO MONITOR.
--- NOTE | 2021-08-15 03:32 | NUR ---
SHIFT SUMMARY PATIENT HAD NO ACUTE CHANGES OBSERVED. AXOX 3 AND INDEPENDENT IN ROOM WITH FWW. NO IV ACCESS. DENIES CHEST PAIN, SOB, AND N/V. VSS/AFEBRILE. RESTING IN BED MOST OF THE SHIFT WATCHING TV ON/OF. CALL LIGHT IN REACH. BED IN LOWEST POSITION. WILL CONTINUE TO MONITOR UNTIL DAY SHIFT NURSE ASSUMES CARE.
--- NOTE | 2021-08-15 18:29 | NUR ---
DAY SHIFT SUMMARY 61 YR OLD MALE. INDEPENDENT IN ROOM WITH WALKER. MEPILEX TO KNEES AND DRESSING TO LT SIDE OF ABDOMEN. WAITING PLACEMENT IN [facility]. PT STATES HE IS "NOT EXCITED ABOUT ADULT [facility] HOME" AND FEELS THAT IF HE GOES THERE HE WILL "NEVER LEAVE AND THERE." COMMENTS REPORTED TO CHARGE NURSE. CALLS APPROPRIATELY, A/O X3 WITH SOME CONFUSION. CALL LIGHT WITHIN REACH.
--- NOTE | 2021-08-16 05:59 | NUR ---
SHIFT SUMMARY: PT IS A/OX4; SOMETIMES WITH SLOW RESPONSES. HE IS ABLE TO USE HIS FWW INDEPENDENTLY. THERE ARE MEPILEX DRESSINGS TO KNEES BILATERALLY AND HIS LEFT CHEST THAT ARE CDI. PT REMAINS CALM AND COOPERATIVE AND NO NEW CHANGES TO REPORT.
--- NOTE | 2021-08-16 17:43 | NUR ---
DAY SHIFT SUMMARY NO ACUTE CHANGES WITH THIS PT THIS SHIFT. 73 YR OLD MALE, PLESANTLY CONFUSED, PARANOID HALLUCINATIONS. CHRONIC ORELLANA INTACT, PATENT AND DRAINING BY GRAVITY. AWAITING PLACEMENT FOR MEMORY CARE. CALL LIGHT WITHIN REACH.
--- NOTE | 2021-08-16 17:51 | NUR ---
DAY SHIFT SUMMARY PLEASANT 61 YR OLD MALE, CONFUSED. REFUSED MORNING MEDS BUT TOOK 1630 MEDS. WAITING PLACEMENT FOR [facility]ULT [facility], WHICH HE IS UNSURE HE WANTS. MEPILEX TO KNEES AND LEFT SIDE OF ABDOMEN. PT SEEMS TO BE EXPERIENCING SOME PARANOID EPISODES, STATING HE IS BEING HELD CAPTIVE. PT HAS BEEN ASKING WHAT THE PLAN IS FOR HIM GETTING OUT OF HERE, HE MET WITH HIS DETECTIVE BUREAU CHIEF (TOMMY) TODAY. ON RA, ABLE TO AMBULATE WITH FRONT WHEEL WALKER. CALL LIGHT WITHIN REACH OF PT.
--- NOTE | 2021-08-17 06:38 | NUR ---
SUMMARY: PT A/OX3, IS SBA W/FWW AND PLEASANT/COOPERATIVE W/CARE. HE SPECIFIES NEEDS AND DENIED PAIN/COMPLAINTS T/O NOCTE. HE IS REPORTED BEING IN [employer] AFTER LEARING OF PLAN TO BE DISCHARGED TO [facility] IN [place]. PT REQUIRED SOME REMINDERS TO WHEN THIS WAS SCHEDULED TO POTENTIALLY OCCUR. PT USES URINAL INDEPENDENTLY AND HAD SNACK PER REQUEST. MEPILEX DX'S REMAIN C/D/I TO BILAT KNEES AND UPPER ABDO/L.FLANK. NO ACUTE CHANGES, VSS/AFEBRILE. WCTM AND REPORT TO DAY RN.
--- NOTE | 2021-08-17 18:34 | NUR ---
SHIFT SUMMARY- PT UP INDEPENDNETLY IN THE ROOM, NO IV ACCESS NEEDED, NO ACUTE CHANGES T/O THE DAY. MEDICATED ONCE WITH CEPACOL LOZENGE FOR A SORE THROAT. PT DENIES ANY ADDITIONAL DISCOMFORTS. WILL CTM.
--- NOTE | 2021-08-18 04:02 | NUR ---
RN MANAGER SUMMARY PATIENT HAD A FAIR SHIFT. V/S WERE STABLE. HIS ASSESSMENT DONE AND DOCUMENTED. HE IS WANTING TO BE DISCHARGED HOME. WILL CONTINUE TO MONITOR HIM.
--- NOTE | 2021-08-18 18:02 | NUR ---
SHIFT SUMMARY- PT ALERT AND ORIENTED AT TIMES, HE CAN BE CONFUSED AND IRRITABLE, HE WAS ANGRY THIS MORNING, FEELING CONTAINED AND A LITTLE HOPELESS. AFTER SOME INTERACTION WITH STAFF AND A HOT SHOWER THE PT MOOD IMPROVED. PT INDEPENDENT IN THE ROOM AND THE HALLS. PLAN IS FOR THE PT TO DC TO A FACILITY 08-26. PT HAS HAD NO ACUTE CHANGE T/O THE SHIFT MEDICATED WITH TYLENOL FOR NECK PAIN ONCE DRESSINGS CHANGED AFTER THE SHOWER.
--- NOTE | 2021-08-19 03:48 | NUR ---
J2EE APPLICATION DEVELOPER SUMMARY PATIENT HAD A FAIR SHIFT. HE LODGED NO COMPLAINTS OVERNIGHT. WILLCONTINUE TO MONITOR HIM.
--- NOTE | 2021-08-20 16:51 | NUR ---
PATIENT IS A&O X 3. PATIENT EXERCISED BY AMBULATING IN THE HALLWAY. GAIT IS RIDGID AND LEGS APPEAR STIFF. PATIENT REPORTS LIDOCAINE IS EFFECTIVE AND PAIN IS RATED 4/10 AT BEST-LOCATED IN NECK. NO NEW OR WORSENING SYMPTOMS. WILL CONTINUE TO MONITOR.
--- NOTE | 2021-08-21 03:16 | NUR ---
TIN ASSORTER SUMMARY PATIENT HAD A FAIR SHIFT. WITH STABLE V/S. NO OVERNIGHT EVENTS. WILL CONTINUE TO MONITOR HER.
--- NOTE | 2021-08-21 16:02 | NUR ---
Patients mood was pleasant today. He showered and wound care was completed. Images of each wound placed into the hard chart. Patient talks about discharge and is ready to go. Patient had no complaints.
--- NOTE | 2021-08-22 03:01 | NUR ---
WIRE WRAPPER MACHINE OPERATOR SUMMARY PATIENT HAD A FAIR SHIFT. HIS VITALS ARE STABLE. HE DID NOT LODGE ANY COMPLAINTS OVERNIGHT. WILL CONTINUE TO MONITOR HIM.
--- NOTE | 2021-08-22 11:01 | NUR ---
DR. IQBAL EVALUATED WOUNDS TO KNEES AND L ABD. DR. IQBAL GAVE VO TO DC WOUND CARE TO KNEES AND MEDIHONEY DUE TO WOUNDS HEALED. ORDERS PROCESSED. WOUND CARE TO FACIAL AREA ALSO DC'D DUE TO FACIAL WOUNDS HEALED.
--- NOTE | 2021-08-22 18:37 | NUR ---
Patient was seen by this am. Bilateral knee dressings were discontinued. Patient was provided with verbal information on vivitrol, naltexone and campral and is thinking about learning more about these anti crave medications at his treatment facility. No concerns noted this shift, we will continue to monitor.
--- NOTE | 2021-08-23 05:28 | NUR ---
SHIFT SUMMARY: PATIENT HAS NO REPORTS OF PAIN OR DISCOMFORT THIS SHIFT. VSS, TOLERATING DIET WELL, ATE 100% OF SNACK. VOIDING IN THE URINAL AND AMBULATES TO THE BATHROOM WITH FWW INDEPENDANTLY.
--- NOTE | 2021-08-23 17:28 | NUR ---
SHIFT SUMMARY: PT A/O 2-3, IND IN ROOM. PT DENIED NECK PAIN T/OUT THE DAY. HE IS EATING WELL, DRINKING FLUIDS WELL. VERY PLEASANT AND COOPERATIVE. NO CONCERNS AT THIS TIME. WOUND CARE COMPLETED TO Jose BENNETT.
--- NOTE | 2021-08-24 05:41 | NUR ---
SHIFT SUMMARY: PATIENT IS ANXIOUS ABOUT PENDING DISCHARGE TO [facility]. SPOKE EXTENSIVELY TO COLLECTION SUPERVISOR ABOUT FAMILY HISTORY WITH DRUG AND ETOH ABUSE THROUGHOUT HIS LIFE. COLLECTION SUPERVISOR FOCUSES ON PATIENTS CHANCE TO BREAK THE CYCLE OF ADDICTION AND A NEW BEGINING [place] A [place]. VSS, REPORTED SLEEPING WELL BUT WAS UP EARLIER THAN USUAL THIS AM.
--- NOTE | 2021-08-24 18:32 | NUR ---
END OF SHIFT SUMMARY: PATIENT REPORTED CHRONIC PAIN, BUT DENIED NEED FOR FURTHER INTERVENTION THAN SCHEDULED PAIN PATCH. PATIENT INDEPENDENT IN THE ROOM. PATIENT HAS AN UNUSUAL, BUT STEADY GAIT. PATIENT DENIED DIZZINESS WHEN AMBULATING OR DIFFICULTY GETTING AROUND THE ROOM. PATIENT HAS AN EXCELLENT APPETITE. PATIENT REPORTS THAT HE HAS A POSITIVE OUTLOOK ABOUT HIS DISCHARGE ("THE ONLY ATTITUDE YOU CAN HAVE" PER THE PATIENT).
--- NOTE | 2021-08-25 06:15 | NUR ---
SHIFT SUMMARY PT IS A 61 Y/O MALE ORIGINALLY ADMITTED FOR ETOH WITHDRAWAL AND CURRENTLY AWAITING PLACEMENT. HE IS A&O X 4, INDEPENDENT IN THE ROOM WITH FWW. VITAL SIGNS STABLE. NO C/O ACUTE PAIN, NAUSEA OR SOB. NO ACUTE CHANGES IN PT CONDITION NOTED DURING THE NIGHT, WILL CONTINUE TO MONITOR AND TREAT PER EMAR UNTIL HAND OFF TO DAY SHIFT RN.
--- NOTE | 2021-08-25 16:23 | NUR ---
SHIFT SUMMARY PATIENT DENIES PAIN, NAUSEA, AND SHORTNESS OF BREATH. PATIENT IS INDEPENDENT IN ROOM. PATIENT WALKED IN HALLWAY WITH SUPERVISION AND FWW. PATIENT SEEMS EXCITED TO BE POSSIBLY DISCHARGED NEXT WEEK. PATIENT IS EATING AND DRINKING WELL. PATIENT NAPPED THIS AFTERNOON. PATIENT IS PLEASANT AND COOPERATIVE WITH CARE.
--- NOTE | 2021-08-26 04:07 | NUR ---
SHIFT SUMMARY 61 YR M ADMITTED ON 05/10/2021 FOR TRAUMATIC HEPATIC ENCEPHALOPATHY, CELLULITIS, SEPSIS, SND RHABDOMYOLYSIS. HE WENT THROUGH ALCOHOL WITHDRAWL BUT IS PAST THAT NOW. PT IS INDEPENDANT IN ROOM, NO TELE, NO IV. NO ACUTE CHANGES THIS SHIFT AND HE DENIES PAIN, N/V AND SOB. HE IS WAITING FOR PLACEMENT IN ASSISTED LIVING OR INPATIENT FACILITY AND SHOULD BE DISCHARGED WITHIN THE NEXT FEW DAYS.
--- NOTE | 2021-08-26 17:05 | NUR ---
SHIFT SUMMARY PATIENT DENIES PAIN, NAUSEA, AND SHORTNESS OF BREATH. PATIENT IS INDEPENDENT IN ROOM. PATIENT DOES AMBULATE IN HALLWAY WITH FWW AND SUPERVISION. DRESSING TO ABDOMEN CHANGED TODAY. PATIENT IS EATING AND DRINKING WELL. PATIENT IS POSSIBLY DISCHARGING , 08/30, TO [facility]. PATIENT IS PLEASANT AND COOPERATIVE WITH CARE.
--- NOTE | 2021-08-27 06:01 | NUR ---
SHIFT SUMMARY PATIENT ALERT AND ORIENTED X3. HAD NO COMPLAINTS OF PAIN OR SHORTNESS OF BREATH. NO ACUTE ISSUES NOTED OVERNIGHT. CALL LIGHT WITHIN REACH. REPORT GIVEN TO ONCOMING RN.
--- NOTE | 2021-08-27 17:25 | NUR ---
Shift Summary AOx3, pleasant and cooperative with care. Up independently. No complaints. Dressing to L abdomen changed. Awaiting placement.
--- NOTE | 2021-08-28 06:32 | NUR ---
SHIFT SUMMARY PATIENT ALERT AND ORIENTED X3. HAD NO COMPLAINTS OF PAIN OR SHORTNESS OF BREATH. NO ACUTE ISSUES NOTED OVERNIGHT. BED IN LOWEST POSITION WITH WHEELS LOCKED AND ALARM ON. CALL LIGHT WITHIN REACH. REPORT GIVEN TO ONCOMING RN.
--- NOTE | 2021-08-28 17:31 | NUR ---
SHIFT SUMMARY PT AOX3; CALLS APPROPRIATELY. INDEPENDENT IN THE ROOM AND WALKS AROUND WITH FWW SUPERVISION. CHANGED THE DRESSING TODAY ON HIS RIGHT ABD THAT HAS WOUND. PT DENIES CP OR PAIN. BED IS IN THE LOWEST POSITON AND CALL LIGHT WITHIN REACH
--- NOTE | 2021-08-29 06:47 | NUR ---
SHIFT SUMMARY PATIENT ALERT AND ORIENTED. HAD NO COMPLAINTS OF PAIN OR SHORTNESS OF BREATH. NO ACUTE ISSUES NOTED OVERNIGHT. CALL LIGHT WITHIN REACH. REPORT GIVEN TO ONCOMING RN.
--- NOTE | 2021-08-29 18:23 | NUR ---
SHIFT SUMMARY PT AXO, PLEASANT AND COOPERATIVE WITH CARE. UPON MORNING ASSESSMENT PT EXPRESSED FEELINGS OF SADNESS. HE STATES HE IS READY TO BE DISCHARGED. DENIES SI. PT DENIES PAIN, SOB AND NV. AMBULATES INDEPENDENTLY WITH ATAXIC GAIT. NO ACUTE CHANGES THIS SHIFT. DRESSING TO ABDOMEN INTACT, PT REFUSED DRESSING CHANGE THIS SHIFT. BED IN LOW POSITION, CALL LIGHT WITHIN REACH. PT REQUESTED NICOTINE PATCH, MEDICATED PER EMAR AFTER POPPY NEVES GAVE ORDERS.
[2021-08-29 21:31] LABS: Influenza A, PCR NEGATIVE (NEGATIVE); Influenza B, PCR NEGATIVE (NEGATIVE); Resp Syncytial Virus, PCR NEGATIVE (NEGATIVE); SARS-Cov-2 (COVID-19) PCR, MMC NEGATIVE (NEGATIVE)
--- NOTE | 2021-08-30 03:09 | NUR ---
Benja said he was having trouble sleeping due to his excitement about "moving". He stated he hoped this would be a new opportunity for him as he had burned a lot of bridges in the past. No complaints of pain or discomfort. He is concerned about having lost his cane during his stay here at [facility]. Will check in with charge auditor regarding possible places to look. Will continue to monitor
[2021-08-30] MEDS ORDERED: NICO21TP TOP (09:24)
[2021-08-30] MEDS ORDERED: PANT40 PO (09:25)
== END 2021-08-30 11:14 | DRG 871 ==
LOC: ER 15:45 → MEDS 20:20
PROVIDERS: Family Medicine; Hospitalist; Internal Medicine; Student in an Organized Health Care Education/Training Program; ADMIT Internal Medicine
PROC: HZ2ZZZZ Detoxification Services for Substance Abuse Treatment (ICD-10-PCS; principal; 2021-05-10)
DX: A41.51 Sepsis due to Escherichia coli [E. coli] (principal); G92.8 Other toxic encephalopathy; E43 Unspecified severe protein-calorie malnutrition; F10.239 Alcohol dependence with withdrawal, unspecified; L03.115 Cellulitis of right lower limb; N39.0 Urinary tract infection, site not specified; L03.116 Cellulitis of left lower limb; K62.5 Hemorrhage of anus and rectum; F13.20 Sedative, hypnotic or anxiolytic dependence, uncomplicated; K70.40 Alcoholic hepatic failure without coma; Z20.822 Contact with and (suspected) exposure to COVID-19; Z68.24 Body mass index [BMI] 24.0-24.9, adult; R65.20 Severe sepsis without septic shock; F41.9 Anxiety disorder, unspecified; J45.909 Unspecified asthma, uncomplicated; R79.89 Other specified abnormal findings of blood chemistry; F17.210 Nicotine dependence, cigarettes, uncomplicated; E86.0 Dehydration; J02.9 Acute pharyngitis, unspecified; F12.20 Cannabis dependence, uncomplicated; D69.59 Other secondary thrombocytopenia; Z93.1 Gastrostomy status; Z88.0 Allergy status to penicillin; S20.219A Contusion of unspecified front wall of thorax, initial encounter; T79.6XXA Traumatic ischemia of muscle, initial encounter; S00.83XA Contusion of other part of head, initial encounter; E87.6 Hypokalemia; B96.20 Unspecified Escherichia coli [E. coli] as the cause of diseases classified elsewhere; Z71.41 Alcohol abuse counseling and surveillance of alcoholic; W18.39XA Other fall on same level, initial encounter; Y90.0 Blood alcohol level of less than 20 mg/100 ml
CPT/HCPCS: 0241U; 36415; 36600; 70450; 71260; 72125; 76705; 80048; 80053; 80074; 80076; 81001; 82140; 82248; 82270; 82272; 82550; 82553; 82607; 82728; 82746; 82803; 83540; 83550; 83605; 83735; 84100; 84702; 85025; 85027; 85610; 87040; 87077; 87081; 87086; 87186; 87430; 92507; 92523; 92526; 92610; 93005; 93010; 94760; 94761; 94762; 96365-59; 96375-59; 96376-59; 97110; 97112; 97116; 97129; 97130; 97162; 97166; 97530; 99285-25; A9270; C9113; G0480; J0690; J1650; J2060; J3411; J3475; J3480; J7030; J7042; J7050; Q9967

== ENCOUNTER 2025-04-20 19:52 | Emergency (ER) | payer MEDICARE ==
[~2025-04-20] VITALS: Ht 180.3 cm; Wt 77.1 kg
[~2025-04-20 19:52] MED LIST: NICO21TP TOP; PANT40 PO
[2025-04-20] MEDS ORDERED: NS 1,000 ML IV SCH (21:10)
[2025-04-20] MEDS ORDERED: Folic Acid 1 MG TAB PO ONE (21:10)
[2025-04-20 22:37] LABS: BASOPHILS ABSOLUTE AUTO 0.09 K/mm3 (0.00-0.23); BASOPHILS PERCENT AUTO 1 % (0-2); EOSINOPHILS ABSOLUTE AUTO 0.08 K/mm3 (0.00-0.68); EOSINOPHILS PERCENT AUTO 1 % (0-6); Hematocrit 42.2 % (37.0-53.0); Hemoglobin 14.3 g/dL (13.5-17.5); IMMATURE GRAN ABSOLUTE AUTO 0.01 K/mm3 (0.00-0.10); IMMATURE GRAN PERCENT AUTO 0 % (0-1); LYMPHOCYTES ABSOLUTE AUTO 2.70 K/mm3 (0.84-5.20); LYMPHOCYTES PERCENT AUTO 35 % (21-46); MONOCYTES ABSOLUTE AUTO 0.46 K/mm3 (0.16-1.47); MONOCYTES PERCENT AUTO 6 % (4-13); Mean Corpuscular HGB Conc 33.9 g/dL (31.5-36.5); Mean Corpuscular Volume 92 fL (80-100); NEUTROPHILS ABSOLUTE AUTO 4.30 K/mm3 (1.96-9.15); NEUTROPHILS PERCENT AUTO 56 % (41-73); NRBC ABSOLUTE 0.00 K/mm3 (0.00-0.02); NRBC Auto 0.0 /100 WBC (0.0-0.2); Platelet Count 230 K/mm3 (150-400); RDW Coefficient Variation 12.6 % (11.7-14.2); RDW Standard Deviation 43.1 fL (35.1-46.3)
[2025-04-20 22:54] LABS: Anion Gap 10.0 mmol/L (3-11); Blood Urea Nitrogen 7.0 mg/dL (8-24); CO2, Blood 24.0 mmol/L (21-32); Calcium, Blood 8.5 mg/dL (8.5-10.1); Chloride, Blood 110.0 mmol/L (98-108); Creatinine, Blood 0.58 mg/dL (0.60-1.20); Ethanol (Alcohol), Blood, Med 209.0 mg/dL; Glucose, Blood 93.0 mg/dL (70-99); Magnesium, Blood 2.0 mg/dL (1.6-2.4); Potassium, Blood 3.7 mmol/L (3.5-5.5); Sodium, Blood 140.0 mmol/L (136-145)
== END 2025-04-21 00:05 | disposition home or self-care (01) ==
LOC: ER 19:52
PROVIDERS: Emergency Medicine
DX: S00.81XA Abrasion of other part of head, initial encounter (principal); S00.03XA Contusion of scalp, initial encounter; E86.0 Dehydration; F10.90 Alcohol use, unspecified, uncomplicated; F17.210 Nicotine dependence, cigarettes, uncomplicated; V00.831A Fall from motorized mobility scooter, initial encounter; Z23 Encounter for immunization; Z88.0 Allergy status to penicillin; Z79.899 Other long term (current) drug therapy
CPT/HCPCS: 70450; 72125; 80048; 80320; 83735; 85025; 90715